=== PATIENT | male | born 1940 | race Caucasian/White ===

== ENCOUNTER 2022-01-13 11:51 | Inpatient (IN) | payer MEDICARE ==
[~2022-01-13] VITALS: Ht 177.8 cm; Wt 114.3 kg
[2022-01-13] VITALS (15 sets, daily range): BP systolic 75–169; BP diastolic 48–110
[2022-01-13] MEDS ORDERED: propofol 1000mg/100ml bottle 100 ML IV ONE (12:34)
[2022-01-13] MEDS ORDERED: amiodarone/D5 360MG/200ML BAG 200 ML IV SCH ×2 (12:35→16:15)
[2022-01-13] MEDS: propofol 1000mg/100ml bottle 100 ML IV SCH (12:42)
[2022-01-13 13:00] LABS: ABG BASE EXCESS -14.7 mmol/L (-2.0-2.0); ABG HCO3 18.4 mmol/L (22.0-26.0); ABG OXYGEN SATURATION 66.8 % (94-97); ABG PCO2 (T) 73.3 mmHg (35.0-48.0); ALLEN'S TEST POSITIVE; FCOHb 0.6 % (0.0-3.9); FMetHb 0.1 % (0.0-1.5); FO2Hb 66.3 % (94-97); PATIENT TEMPERATURE 36.5; PEEP 5 cm H2O; RESPIRATORY RATE 16 b/min; TIDAL VOLUME 500 mL; TOTAL HEMOGLOBIN 19.1 G/dl (14.0-17.9)
[2022-01-13] MEDS ORDERED: epiNEPHrine 0.1mg/ml 10ml syringe ONE (13:00)
[2022-01-13] MEDS ORDERED: amiodarone in dextrose, iso-osm 150mg/100ml bag IV ONE (13:00)
[2022-01-13] MEDS ORDERED: NORepinephrine bitart. inj. IV ONE (13:00)
[2022-01-13] MEDS ORDERED: sodium bicarbonate (8.4%) 1 mEq/ml syringe ONE (13:00)
[2022-01-13] MEDS ORDERED: etomidate 2mg/ml inj. ONE (13:00)
[2022-01-13] MEDS ORDERED: rocuronium 10mg/ml inj IV ONE (13:00)
[2022-01-13 13:26] LABS: BASOPHILS # (AUTO) 0.1 X10'3 (0-0.2); BASOPHILS % (AUTO) 0.4 % (0-1); EOSINOPHILS # (AUTO) 0.5 X10'3 (0-0.9); EOSINOPHILS % (AUTO) 2.5 % (0-6); HEMATOCRIT 56.2 % (42.0-52.0); LYMPHOCYTES # (AUTO) 7.5 X10'3 (1.1-4.8); LYMPHOCYTES % (AUTO) 34.9 % (21-51); MEAN CORPUSCULAR HEMOGLOBIN 28.1 PG (27.0-31.0); MEAN CORPUSCULAR HGB CONC 32.2 g/dL (33.0-36.5); MEAN CORPUSCULAR VOLUME 87.1 FL (78-98); MEAN PLATELET VOLUME 10.4 FL (7.4-10.4); MONOCYTES # (AUTO) 1.2 X10'3 (0-0.9); MONOCYTES % (AUTO) 5.5 % (2-12); NEUTROPHILS # (AUTO) 12.1 X10'3 (1.8-7.7); NEUTROPHILS % (AUTO) 56.7 % (42-75); PLATELET COUNT 262 X10'3 (140-440); RED BLOOD COUNT 6.45 X10'6 (4.70-6.10); RED CELL DISTRIBUTION WIDTH 15.4 % (11.5-14.5); WHITE BLOOD COUNT 21.4 X10'3 (4.5-11.0)
[2022-01-13 13:39] LABS: ALANINE AMINOTRANSFERASE 73 U/L (12-78); ALBUMIN 3.7 G/DL (3.4-5.0); ALKALINE PHOSPHATASE 122 IU/L (46-116); ANION GAP 21 (8-16); BILIRUBIN,TOTAL 1.9 MG/DL (0.1-1.0); BLOOD UREA NITROGEN 13 MG/DL (7-18); BUN/CREATININE RATIO 11.1 (5.4-32.0); CALCIUM 9.1 MG/DL (8.5-10.1); CHLORIDE 97 MMOL/L (99-107); CREATININE 1.17 MG/DL (0.60-1.10); GLUCOSE 442 MG/DL (70-104); SODIUM 137 MMOL/L (135-145); TOTAL PROTEIN 7.5 G/DL (6.4-8.2); eGFR 60 ML/MIN
[2022-01-13 13:45] LABS: MAGNESIUM 1.9 MG/DL (1.5-2.4)
[2022-01-13 13:49] LABS: ASPARTATE AMINO TRANSFERASE 131 U/L (10-37); POTASSIUM 3.7 MMOL/L (3.5-5.1)
[2022-01-13 13:57] LABS: HEMOGLOBIN 18.1 g/dl (14.0-17.9)
--- NOTE | 2022-01-13 13:57 | NUR ---
1217 pt found in bed 19 post ekg not breathing and no pulse. pt wheeled into bed 8 and cpr started with edmd yves 1220-pulse check, vfib, shocked 200j with no effect 1221 io placed left upper tibia 1222 epi given 1223 10 etomidate, pulse check, pt in vfib- shocked at 200j 1225 pulse check, vfib, 1 amp bicarb given 1227 100 rocuronium given, 150 amio push, 10 etomidate 1229 intubated, 23 att, 8.0 mac, sinus tach rate 110 with multiple pvcs
[2022-01-13 14:04] LABS: TOTAL CELLS COUNTED 100
[2022-01-13 14:05] LABS: PLATELET ESTIMATE NORMAL
[2022-01-13] MEDS ORDERED: piperacillin/tazo 3.375gm/50ml 50 ML IV ONE (14:05)
[2022-01-13] MEDS ORDERED: normal saline 1000ML IV soln IVB ONE (14:10)
[2022-01-13] MEDS ORDERED: metoprolol tartrate 1mg/ml inj IV ONE (14:10)
[2022-01-13 15:20] LABS: ETHANOL < 0.010 GM/DL (0.0-0.010)
[2022-01-13] MEDS ORDERED: magnesium hydroxide 30ml (MOM) UD suspension PO PRN (16:00)
[2022-01-13] MEDS ORDERED: LIDOcaine 2% 10ml TOPICAL JELLY (Urojet) TP ONE (16:00)
[2022-01-13] MEDS ORDERED: POTASSIUM BICARB 20meq eff tab 20 MEQ TABLET.EFF PO PRN (16:00)
[2022-01-13] MEDS ORDERED: acetaminophen 325mg tablet PO PRN (16:00)
[2022-01-13] MEDS ORDERED: ondansetron/PF 4mg/2ml inj IV PRN (16:00)
[2022-01-13] MEDS ORDERED: HEPARIN SOD,PORK IN 0.45% NACL 250 ML IV SCH (16:15)
[2022-01-13] MEDS ORDERED: heparin 10,000 units/1 ML INJ IV ONE (16:15)
[2022-01-13] MEDS ORDERED: heparin 10,000 units/1 ML INJ IV PRN (16:15)
[2022-01-13 16:34] LABS: OXYGEN SATURATION (MIXED VEN) 82.8 % (60-80); PO2 MIXED VENOUS (TEMP COR) 63.6 mmHg (35-46)
[2022-01-13 16:52] LABS: BASOPHILS # (AUTO) 0.1 X10'3 (0-0.2); BASOPHILS % (AUTO) 0.4 % (0-1); EOSINOPHILS # (AUTO) 0.2 X10'3 (0-0.9); EOSINOPHILS % (AUTO) 0.5 % (0-6); HEMATOCRIT 54.2 % (42.0-52.0); HEMOGLOBIN 17.5 g/dl (14.0-17.9); LYMPHOCYTES # (AUTO) 3.8 X10'3 (1.1-4.8); LYMPHOCYTES % (AUTO) 12.9 % (21-51); MEAN CORPUSCULAR HEMOGLOBIN 28.4 PG (27.0-31.0); MEAN CORPUSCULAR HGB CONC 32.3 g/dL (33.0-36.5); MEAN CORPUSCULAR VOLUME 87.9 FL (78-98); MEAN PLATELET VOLUME 9.4 FL (7.4-10.4); MONOCYTES # (AUTO) 2.3 X10'3 (0-0.9); MONOCYTES % (AUTO) 7.6 % (2-12); NEUTROPHILS # (AUTO) 23.5 X10'3 (1.8-7.7); NEUTROPHILS % (AUTO) 78.6 % (42-75); PLATELET COUNT 320 X10'3 (140-440); RED BLOOD COUNT 6.17 X10'6 (4.70-6.10); RED CELL DISTRIBUTION WIDTH 14.8 % (11.5-14.5)
[2022-01-13] MEDS ORDERED: AMLO10TA13 PO (17:03)
[2022-01-13] MEDS ORDERED: CHLO25TA10 PO (17:03)
[2022-01-13] MEDS ORDERED: LOSA100T57 PO (17:03)
[2022-01-13] MEDS ORDERED: LEVO200T8 PO (17:03)
[2022-01-13] MEDS ORDERED: DABI150C PO (17:03)
[2022-01-13] MEDS ORDERED: NAPR-56 PO (17:03)
[2022-01-13] MEDS ORDERED: METF-900 PO (17:03)
[2022-01-13 17:05] LABS: CLARITY,URINE CLOUDY (Clear); COLOR,URINE YELLOW (Yellow); GLUCOSE, URINE NEGATIVE (Neg); KETONES,URINE TRACE mg/dl (Neg); LEUKOCYTE ESTERASE ,URINE NEGATIVE (Neg); NITRITES, URINE NEGATIVE (Neg); OCCULT BLOOD,URINE SMALL (Neg); PH,URINE 5.5 (4.8-8.0); PROTEIN,URINE >=300 mg/dl (Neg); UROBILINOGEN,URINE 0.2 E.U/dL (0.2-1.0)
[2022-01-13 17:07] LABS: UA COLLECTION TYPE FOLEY CATH
[2022-01-13 17:07] LABS: ALANINE AMINOTRANSFERASE 91 U/L (12-78); ALBUMIN 3.5 G/DL (3.4-5.0); ALKALINE PHOSPHATASE 133 IU/L (46-116); ANION GAP 26 (8-16); ASPARTATE AMINO TRANSFERASE 209 U/L (10-37); BILIRUBIN,TOTAL 1.9 MG/DL (0.1-1.0); BLOOD UREA NITROGEN 17 MG/DL (7-18); BUN/CREATININE RATIO 9.7 (5.4-32.0); CALCIUM 8.9 MG/DL (8.5-10.1); CHLORIDE 95 MMOL/L (99-107); CREATININE 1.76 MG/DL (0.60-1.10); POTASSIUM 3.4 MMOL/L (3.5-5.1); SODIUM 139 MMOL/L (135-145); TOTAL CARBON DIOXIDE 18.5 MMOL/L (24-32); TOTAL PROTEIN 7.1 G/DL (6.4-8.2); eGFR 38 ML/MIN
[2022-01-13 17:12] LABS: GLUCOSE 496 MG/DL (70-104)
[2022-01-13] MEDS: amiodarone/D5 360MG/200ML BAG 200 ML IV SCH ×2 (17:31→23:13)
[2022-01-13 17:35] LABS: BACTERIA,URINE 2+ /HPF (Neg); RBC,URINE 0-2 /HPF (0-2); SQUAMOUS EPITHELIAL CELL,UR NONE SEEN /LPF (FEW)
[2022-01-13 17:36] LABS: WBC,URINE 0-4 /HPF (0-4)
--- NOTE | 2022-01-13 17:38 | NUR ---
ptt/ inr sent before starting heparin gtt. ptt 118 inr 4.0 heparin gtt stoped
[2022-01-13 17:39] LABS: APTT 118 SECONDS (22-32)
[2022-01-13] MEDS ORDERED: insulin Lispro (HumaLOG) vial - multi-dose SQ SCH (17:55)
[2022-01-13] MEDS ORDERED: Insulin Reg/NS 100units/100mL 100 ML IV SCH (17:55)
[2022-01-13] MEDS ORDERED: dextrose 50%-water 50ml dispensing syringe IV PRN (17:55)
[2022-01-13] MEDS: FENTANYL-0.9 % NACL/PF 100 ML IV PRN (18:02)
[2022-01-13] MEDS ORDERED: NORepinephrine 8mg/ 250ml NS 250 ML IV ONE (18:38)
[2022-01-13] MEDS ORDERED: vancomycin/NS 1 GM ADD-VANTAGE 250 ML IV SCH (18:40)
--- NOTE | 2022-01-13 18:40 | NUR ---
I have received report and assumed care of pt. pt is a 81 year old male, who came to the r with chest pain x 7 days, who became unresponsive, had a V fib arrest was defibrillated in the D, pt has an F of 15 %. He is admitted to the ICU with sever Lactic acidosis, ARDS, hypotension, anuric multisystem failure. He is on a mechanical ventilator, skin is cool, dusky most notably his fingers are deep purple, capillary refill greater then 4 sec., pt is mottled all over. From a cardiac stand point pt is in Afib with frequent PAC, PVC. Pt does not make urine, he does not respond to verbal stimuli. Dr. Schaeffer at bedside, new orders to start Levophed to keep MAP greater the 60, dobutamine at a fixed rate to 3mcg/kg/min. Push 2 amps bicarb followed with a bicarb drip, start and insulin infusion to keep glucose 110-150. Dr. Schaeffer also spoke to pts POA, explained the poor prognosis of pt, Code status discussed pt is now a DNR. Addendum: 01/14/22 at 0601 by Tiki Marrero RN all vaso active medication threw CVL
[2022-01-13] MEDS ORDERED: sodium bicarbonate (8.4%) 1 mEq/ml syringe IV ONE (18:45)
[2022-01-13] MEDS: NORepinephrine inj. 32 MG in normal saline 250ml IV soln 218 ML IV SCH (18:49)
[2022-01-13] MEDS: vancomycin/NS 1 GM ADD-VANTAGE 250 ML IV SCH ×2 (19:00→21:47)
[2022-01-13 19:14] LABS: WHITE BLOOD COUNT 29.8 X10'3 (4.5-11.0)
[2022-01-13 19:15] LABS: ABG BASE EXCESS -15.3 mmol/L (-2.0-2.0); ABG HCO3 15.9 mmol/L (22.0-26.0); ABG OXYGEN SATURATION 98.7 % (94-97); ABG PCO2 (T) 56.9 mmHg (35.0-48.0); ABG PO2 (T) 183.4 mmHg (75.0-100.0); FCOHb 0.3 % (0.0-3.9); FMetHb 0.7 % (0.0-1.5); FO2Hb 97.7 % (94-97); PATIENT TEMPERATURE 36.7; PEEP 10 cm H2O; RESPIRATORY RATE 20 b/min; TIDAL VOLUME 400 mL; TOTAL HEMOGLOBIN 18.7 G/dl (14.0-17.9)
[2022-01-13] MEDS: DOBUTamine-DoBUTrex 500mg/D5W 250 ML IV SCH (19:17)
[2022-01-13] MEDS: sodium bicarbonate (8.4%) inj. 150 MEQ in dextrose 5%-water 1,000 ML IV SCH (19:27)
[2022-01-14] VITALS (35 sets, daily range): BP systolic 82–123; BP diastolic 50–77
[2022-01-14] MEDS: propofol 1000mg/100ml bottle 100 ML IV SCH ×4 (00:54→22:40)
[2022-01-14] MEDS: piperacillin/tazo 3.375gm/50ml 50 ML IV SCH ×4 (00:54→23:50)
[2022-01-14 01:38] LABS: EOSINOPHILS % (AUTO) 0.1 % (0-6); HEMATOCRIT 51.3 % (42.0-52.0)
[2022-01-14 01:39] LABS: BASOPHILS % (AUTO) 0.2 % (0-1); HEMOGLOBIN 17.4 g/dl (14.0-17.9); LYMPHOCYTES # (AUTO) 1.8 X10'3 (1.1-4.8); LYMPHOCYTES % (AUTO) 8.6 % (21-51); MEAN CORPUSCULAR HEMOGLOBIN 28.8 PG (27.0-31.0); MEAN CORPUSCULAR HGB CONC 33.9 g/dL (33.0-36.5); MONOCYTES # (AUTO) 0.5 X10'3 (0-0.9); MONOCYTES % (AUTO) 2.6 % (2-12); NEUTROPHILS # (AUTO) 18.3 X10'3 (1.8-7.7); NEUTROPHILS % (AUTO) 88.5 % (42-75); PLATELET COUNT 226 X10'3 (140-440); RED BLOOD COUNT 6.03 X10'6 (4.70-6.10); RED CELL DISTRIBUTION WIDTH 14.7 % (11.5-14.5); WHITE BLOOD COUNT 20.6 X10'3 (4.5-11.0)
[2022-01-14 01:52] LABS: ALANINE AMINOTRANSFERASE 217 U/L (12-78); ALBUMIN 3.1 G/DL (3.4-5.0); ALKALINE PHOSPHATASE 103 IU/L (46-116); ANION GAP 17 (8-16); ASPARTATE AMINO TRANSFERASE 387 U/L (10-37); BILIRUBIN,TOTAL 1.8 MG/DL (0.1-1.0); BLOOD UREA NITROGEN 23 MG/DL (7-18); BUN/CREATININE RATIO 10.5 (5.4-32.0); CALCIUM 7.9 MG/DL (8.5-10.1); CHLORIDE 100 MMOL/L (99-107); GLUCOSE 345 MG/DL (70-104); MAGNESIUM 1.1 MG/DL (1.5-2.4); PHOSPHORUS 3.6 MG/DL (2.3-4.5); SODIUM 141 MMOL/L (135-145); TOTAL CARBON DIOXIDE 23.7 MMOL/L (24-32); TOTAL PROTEIN 6.1 G/DL (6.4-8.2); eGFR 29 ML/MIN
[2022-01-14 02:05] LABS: POTASSIUM 2.3 MMOL/L (3.5-5.1)
[2022-01-14 02:09] LABS: APTT > 139 SECONDS (22-32)
--- NOTE | 2022-01-14 02:10 | NUR ---
Pt wakes up moves all extremities does not follow commands resists ventilation, sedation adjust to optimize mechanical ventilation
[2022-01-14] MEDS ORDERED: magnesium 2GM in 50ml NS 50 ML IV PRN (02:25)
[2022-01-14] MEDS: potassium Cl 20mEq/100mL bag 100 ML IV PRN ×3 (02:55→22:24)
[2022-01-14 03:20] LABS: D-DIMER 5.25 MG/L FEU (0-0.50)
[2022-01-14 03:27] LABS: APTT > 139 SECONDS (22-32)
[2022-01-14 03:32] LABS: ABG BASE EXCESS -8.2 mmol/L (-2.0-2.0); ABG HCO3 18.1 mmol/L (22.0-26.0); ABG OXYGEN SATURATION 97.6 % (94-97); ABG PCO2 (T) 38.9 mmHg (35.0-48.0); ABG PO2 (T) 98.5 mmHg (75.0-100.0); ALLEN'S TEST Modified; FCOHb 0.2 % (0.0-3.9); FMetHb 0.6 % (0.0-1.5); FO2Hb 96.8 % (94-97); PATIENT TEMPERATURE 36.4; PEEP 10 cm H2O; RESPIRATORY RATE 24 b/min; TIDAL VOLUME 550 mL; TOTAL HEMOGLOBIN 19.4 G/dl (14.0-17.9)
[2022-01-14 03:37] LABS: PLATELET COUNT 226 X10'3 (140-440)
[2022-01-14 03:50] LABS: TOTAL CELLS COUNTED 100
[2022-01-14 03:51] LABS: GIANT PLATELET FEW; LARGE PLATELETS FEW; PLATELET ESTIMATE NORMAL
[2022-01-14] MEDS: amiodarone/D5 360MG/200ML BAG 200 ML IV SCH ×4 (03:59→23:29)
--- NOTE | 2022-01-14 06:09 | NUR ---
report given to rec rn plan of care reviewed
[2022-01-14] MEDS: NORepinephrine inj. 32 MG in normal saline 250ml IV soln 218 ML IV SCH ×3 (07:56→21:46)
[2022-01-14] MEDS: FENTANYL-0.9 % NACL/PF 100 ML IV PRN ×2 (07:57→12:06)
[2022-01-14] MEDS: K and/or MAG REPLACEMENT MC SCH (08:00)
[2022-01-14] MEDS ORDERED: aspirin 325mg tablet PO SCH (08:30)
[2022-01-14] MEDS ORDERED: vasopressin inj. 40 UNIT in dextrose 5%-water 50ml 38 ML IV SCH (09:29)
[2022-01-14 09:42] LABS: ALBUMIN 2.7 G/DL (3.4-5.0); ANION GAP 15 (8-16); BLOOD UREA NITROGEN 28 MG/DL (7-18); CALCIUM 7.5 MG/DL (8.5-10.1); CHLORIDE 98 MMOL/L (99-107); CREATININE 2.33 MG/DL (0.60-1.10); GLUCOSE 263 MG/DL (70-104); MAGNESIUM 1.4 MG/DL (1.5-2.4); PHOSPHORUS 3.6 MG/DL (2.3-4.5); SODIUM 140 MMOL/L (135-145); TOTAL CARBON DIOXIDE 26.8 MMOL/L (24-32); eGFR 27 ML/MIN
[2022-01-14 09:52] LABS: POTASSIUM 2.9 MMOL/L (3.5-5.1)
[2022-01-14] MEDS: sodium bicarbonate (8.4%) inj. 150 MEQ in dextrose 5%-water 1,000 ML IV SCH (10:05)
[2022-01-14] MEDS: NORMAL SALINE IV SCH (10:59)
[2022-01-14] MEDS: VASOPRESSIN IV SCH (10:59)
[2022-01-14] MEDS ORDERED: magnesium 4gm in 100ml NS 100 ML IV ONE (11:05)
[2022-01-14] MEDS ORDERED: potassium Cl 20mEq/100mL bag 100 ML IV ONE (11:05)
[2022-01-14 11:10] LABS: HEMOGLOBIN A1C 7.9 % (4.5-6.2)
--- NOTE | 2022-01-14 11:25 | NUR ---
Joce Consult: Pt intubated s/p cardiac arrest DX NSTEMI, SIRS, acute respiratory failure, CHF EF 15%, and T2DM per EMR. Joce 11 w/ no edema/wounds per EMR. Hx T2DM A1C pending at this time though pt has not checked Glu for 1 year at home per CM at rounds. MAP 71 this AM remains NPO proned w/ NG to suction per RN at rounds; receiving electrolyte replacement per protocol. Visualized pt receiving Propofol at 20.86ml/hr during rounds providing 551 kcals/day in addition to Na-bicarb/D5W at 75ml/hr per EMR providing 306 kcals/day. EN recs below adjusted accordingly. Will continue to monitor for nutrition support needs on vent. Rec: 1. IF EN w/ Propofol remaining at 20.86ml/hr and Na-bicarb/D5W remaining at 75ml/hr in total providing 857 kcals/day; Vital HP at 50ml/hr goal. Would only be able to meet 63% minimum estimated protein needs without overfeeding given Propofol and D5 kcals 2. IF EN and Propofol/D5 weaned; Vital HP at 85ml/hr goal 3. IF EN; additional water flush 100ml Q6H 4. routine bowel care 5. daily scaled wts; monitor for first scaled wt this admit and EN adjustment needs 6. monitor for A1C results and appropriateness for education upon extubation Addendum: 01/14/22 at 1126 by [address] R Diaz [address] Amended: Links added.
--- NOTE | 2022-01-14 12:37 | NUR ---
PRESSURE ULCER EDUCATION: DEFINITION: A pressure ulcer is an area of skin that breaks down when you stay in one position too long. The constant pressure against the skin reduces the blood flow to that area and the affected tissue dies. CAUSES: "Being bedridden or in a wheelchair "Fragile skin "Having a chronic condition, such as diabetes or vascular disease "Inability to move certain parts of your body without assistance "Older age "Incontinence of urine or stool SYMPTOMS: "A reddened area that DOES NOT turn white when pressed on - this can be the beginning of a pressure ulcer "A blister, deep sore or a crater - these can be advanced pressure ulcers FIRST AID: "Relieve the pressure on this area "Keep the area clean and dry "Call your primary doctor if you see any of the above symptoms "DO NOT massage the area "DO NOT use a donut shaped or ring shaped pillow- these actually interfere with the blood flow and cause complications PREVENTION: "Check for pressure ulcers everyday "Change position at least every two hours to relieve pressure "Use items that help relieve pressure- pillows, sheepskin, foam padding, and powders. "Keep skin clean and dry "Eat healthy well balanced meals "Exercise daily IF YOU SEE ANY OF THESE SYMPTOMS WHILE IN THE HOSPITAL - TELL YOUR NURSE IMMEDIATELY. IF YOU SEE ANY OF THESE SYMPTOMS WHILE AT HOME OR HAVE ANY QUESTIONS OR CONCERNS ABOUT PRESSURE ULCERS - CALL YOUR PRIMARY DOCTOR IMMEDIATELY. Addendum: 01/14/22 at 1238 by Albina Levy RN Amended: Links added.
[2022-01-14] MEDS: pantoprazole 40MG/NS 100ML BAG 100 ML IV SCH ×2 (14:31→19:46)
[2022-01-14] MEDS ORDERED: insulin regular, human U-100 3ml vial - multi-dose SQ SCH (15:30)
[2022-01-14] MEDS: DOBUTamine-DoBUTrex 500mg/D5W 250 ML IV SCH (17:11)
[2022-01-14] MEDS: fentaNYL 2,500 MCG in Normal Saline 250ml IV soln bag IV PRN (17:34)
--- NOTE | 2022-01-14 18:20 | NUR ---
Patient in room ICU 2037. I have received report from Majo Cole RN and had the opportunity to ask questions and assume patient care.
[2022-01-14] MEDS ORDERED: insulin glargine (Lantus) pen - multi-dose SQ SCH (18:30)
[2022-01-14] MEDS ORDERED: VANCOMYCIN 750MG IV in NS 250 ML IV SCH (22:00)
[2022-01-14 22:02] LABS: MAGNESIUM 2.2 MG/DL (1.5-2.4); POTASSIUM 3.2 MMOL/L (3.5-5.1)
[2022-01-14 22:31] LABS: APTT 85 SECONDS (22-32)
[2022-01-15] VITALS (36 sets, daily range): BP systolic 78–127; BP diastolic 45–66
[2022-01-15] MEDS: VASOPRESSIN IV SCH (00:07)
[2022-01-15] MEDS: NORMAL SALINE IV SCH (00:07)
--- NOTE | 2022-01-15 00:37 | NUR ---
Patient waking up periodically during shift, attempting to press up on forearms and move head side to side. Patient does not follow commands. Sedation adjusted for patient safety and to optimize ventilation.
[2022-01-15] MEDS: propofol 1000mg/100ml bottle 100 ML IV SCH ×8 (01:53→21:20)
[2022-01-15] MEDS: sodium bicarbonate (8.4%) inj. 150 MEQ in dextrose 5%-water 1,000 ML IV SCH ×2 (01:54→14:08)
[2022-01-15] MEDS: insulin Lispro (HumaLOG) vial - multi-dose SQ SCH ×3 (02:12→14:52)
[2022-01-15] MEDS: amiodarone/D5 360MG/200ML BAG 200 ML IV SCH ×3 (02:21→17:41)
[2022-01-15 02:36] LABS: BASOPHILS % (AUTO) 0.4 % (0-1); EOSINOPHILS # (AUTO) 0.2 X10'3 (0-0.9); EOSINOPHILS % (AUTO) 1.8 % (0-6); HEMATOCRIT 45.6 % (42.0-52.0); HEMOGLOBIN 15.8 g/dl (14.0-17.9); LYMPHOCYTES # (AUTO) 1.4 X10'3 (1.1-4.8); LYMPHOCYTES % (AUTO) 16.2 % (21-51); MEAN CORPUSCULAR HEMOGLOBIN 28.9 PG (27.0-31.0); MEAN CORPUSCULAR HGB CONC 34.7 g/dL (33.0-36.5); MEAN CORPUSCULAR VOLUME 83.5 FL (78-98); MEAN PLATELET VOLUME 9.9 FL (7.4-10.4); MONOCYTES # (AUTO) 0.8 X10'3 (0-0.9); MONOCYTES % (AUTO) 9.5 % (2-12); NEUTROPHILS # (AUTO) 6.3 X10'3 (1.8-7.7); NEUTROPHILS % (AUTO) 72.1 % (42-75); PLATELET COUNT 167 X10'3 (140-440); RED BLOOD COUNT 5.46 X10'6 (4.70-6.10); RED CELL DISTRIBUTION WIDTH 14.9 % (11.5-14.5); WHITE BLOOD COUNT 8.8 X10'3 (4.5-11.0)
[2022-01-15 02:48] LABS: ABG BASE EXCESS -3.8 mmol/L (-2.0-2.0); ABG HCO3 21.5 mmol/L (22.0-26.0); ABG OXYGEN SATURATION 94.1 % (94-97); ABG PCO2 (T) 40.6 mmHg (35.0-48.0); ABG PO2 (T) 73.7 mmHg (75.0-100.0); ALLEN'S TEST Modified; FCOHb 0.4 % (0.0-3.9); FMetHb 0.4 % (0.0-1.5); FO2Hb 93.3 % (94-97); PATIENT TEMPERATURE 37.3; PEEP 10 cm H2O; RESPIRATORY RATE 24 b/min; TIDAL VOLUME 550 mL; TOTAL HEMOGLOBIN 16.8 G/dl (14.0-17.9)
[2022-01-15 03:03] LABS: ALANINE AMINOTRANSFERASE 247 U/L (12-78); ALBUMIN 2.3 G/DL (3.4-5.0); ALBUMIN/GLOBULIN RATIO 0.8 (1.1-1.5); ALKALINE PHOSPHATASE 70 IU/L (46-116); BILIRUBIN,TOTAL 1.6 MG/DL (0.1-1.0); BLOOD UREA NITROGEN 40 MG/DL (7-18); BUN/CREATININE RATIO 14.5 (5.4-32.0); CALCIUM 7.4 MG/DL (8.5-10.1); CREATININE 2.76 MG/DL (0.60-1.10); MAGNESIUM 2.2 MG/DL (1.5-2.4); PHOSPHORUS 5.3 MG/DL (2.3-4.5); TOTAL CARBON DIOXIDE 25.4 MMOL/L (24-32); TOTAL PROTEIN 5.3 G/DL (6.4-8.2); eGFR 22 ML/MIN
[2022-01-15 03:27] LABS: APTT 79 SECONDS (22-32)
[2022-01-15 03:45] LABS: ASPARTATE AMINO TRANSFERASE 264 U/L (10-37)
[2022-01-15 04:00] LABS: ANION GAP 22 (8-16); CHLORIDE 89 MMOL/L (99-107); GLUCOSE 208 MG/DL (70-104); POTASSIUM 3.9 MMOL/L (3.5-5.1); SODIUM 136 MMOL/L (135-145)
[2022-01-15] MEDS: NORepinephrine inj. 32 MG in normal saline 250ml IV soln 218 ML IV SCH ×2 (04:35→21:20)
[2022-01-15 05:00] LABS: PLATELET ESTIMATE NORMAL; TOTAL CELLS COUNTED 100
[2022-01-15 05:02] LABS: SMUDGE CELLS 1+; TOXIC GRANULATION 1+; TOXIC VACUOLATION FEW
[2022-01-15 05:03] LABS: TEAR DROP CELLS 2+
[2022-01-15 05:04] LABS: ROULEAUX 1+
[2022-01-15] MEDS: fentaNYL 2,500 MCG in Normal Saline 250ml IV soln bag IV PRN ×2 (06:13→18:05)
--- NOTE | 2022-01-15 06:13 | NUR ---
Problems reprioritized. Patient report given, questions answered & plan of care reviewed with MOE Seals.
[2022-01-15] MEDS: pantoprazole 40MG/NS 100ML BAG 100 ML IV SCH ×2 (07:31→19:34)
[2022-01-15] MEDS: piperacillin/tazo 3.375gm/50ml 50 ML IV SCH ×2 (07:31→16:23)
[2022-01-15] MEDS: K and/or MAG REPLACEMENT MC SCH (07:32)
--- NOTE | 2022-01-15 11:52 | NUR ---
TF Consult: Pt remains intubated w/ TF to start today per associate embalmer/funeral director. MD aware of EN adjustments given Propofol at 28.8ml/hr providing 760 kcals/day and Na-bicarb/D5W at 75ml/hr providing 306 kcals/day. EN recs below for both on/off additional kcal sources. Only be able to meet 50% minimum estimated protein needs without overfeeding given Propofol and D5 kcals. Miralax to start today w/ EN per MD. Noted A1C results 7.9% appropriate given age. Will monitor for EN tolerance and adjustment needs as medically indicated. Rec: 1. Continuous TF per MD. Given Propofol at 28.8ml/hr and Na-bicarb/D5W at at 75ml/hr in total providing additional 1066 kcals/day; Vital HP at 40ml/hr goal to provide 960ml volume/day, 960 kcals, 803ml water, and 84g protein. Only be able to meet 50% minimum estimated protein needs without overfeeding given Propofol and D5 kcals 2. IF Propofol/D5 weaned; Vital HP at 85ml/hr goal would provide 2040ml volume/day, 2040 kcals, 1705ml water, and 178g protein. 3. additional water flush 100ml Q6H 4. PALB Q /; daily scaled wts 5. monitor for first scaled wt this admit and EN adjustment needs 6. routine bowel care Addendum: 01/15/22 at 1153 by [address] R Diaz RD Amended: Links added.
[2022-01-15] MEDS: polyethylene glycol 3350 17gm powd pack PO SCH (11:58)
[2022-01-15] MEDS: DOBUTamine-DoBUTrex 500mg/D5W 250 ML IV SCH (14:07)
--- NOTE | 2022-01-15 18:20 | NUR ---
Patient in room ICU 2037. I have received report from MOE Seals and had the opportunity to ask questions and assume patient care.
[2022-01-15] MEDS ORDERED: insulin glargine (Lantus) pen - multi-dose SQ SCH (21:00)
[2022-01-15 21:32] LABS: MAGNESIUM 1.9 MG/DL (1.5-2.4); POTASSIUM 3.9 MMOL/L (3.5-5.1)
[2022-01-15] MEDS: vancomycin inj 500 MG in normal saline 100ml IV soln 100 ML IV SCH (21:54)
[2022-01-15] MEDS ORDERED: vasopressin inj. 40 UNIT in normal saline 50ml IV soln 38 ML IV SCH (23:27)
[2022-01-16] VITALS (35 sets, daily range): BP systolic 85–163; BP diastolic 46–74
[2022-01-16] MEDS: propofol 1000mg/100ml bottle 100 ML IV SCH ×5 (00:30→22:51)
[2022-01-16] MEDS: piperacillin/tazo 3.375gm/50ml 50 ML IV SCH ×3 (00:30→15:51)
[2022-01-16] MEDS: amiodarone/D5 360MG/200ML BAG 200 ML IV SCH ×4 (00:34→17:57)
[2022-01-16 03:03] LABS: BASOPHILS # (AUTO) 0.1 X10'3 (0-0.2); BASOPHILS % (AUTO) 0.6 % (0-1); EOSINOPHILS # (AUTO) 0.2 X10'3 (0-0.9); EOSINOPHILS % (AUTO) 1.7 % (0-6); HEMATOCRIT 40.4 % (42.0-52.0); LYMPHOCYTES # (AUTO) 1.4 X10'3 (1.1-4.8); LYMPHOCYTES % (AUTO) 14.5 % (21-51); MEAN CORPUSCULAR HEMOGLOBIN 28.6 PG (27.0-31.0); MEAN CORPUSCULAR HGB CONC 34.7 g/dL (33.0-36.5); MEAN CORPUSCULAR VOLUME 82.5 FL (78-98); MEAN PLATELET VOLUME 9.7 FL (7.4-10.4); MONOCYTES # (AUTO) 0.7 X10'3 (0-0.9); MONOCYTES % (AUTO) 7.7 % (2-12); NEUTROPHILS # (AUTO) 7.1 X10'3 (1.8-7.7); NEUTROPHILS % (AUTO) 75.5 % (42-75); PLATELET COUNT 141 X10'3 (140-440); WHITE BLOOD COUNT 9.4 X10'3 (4.5-11.0)
[2022-01-16 03:19] LABS: ALBUMIN 1.9 G/DL (3.4-5.0); ALBUMIN/GLOBULIN RATIO 0.6 (1.1-1.5); ALKALINE PHOSPHATASE 71 IU/L (46-116); BILIRUBIN,TOTAL 1.6 MG/DL (0.1-1.0); BLOOD UREA NITROGEN 50 MG/DL (7-18); BUN/CREATININE RATIO 14.2 (5.4-32.0); CALCIUM 7.1 MG/DL (8.5-10.1); CREATININE 3.51 MG/DL (0.60-1.10); MAGNESIUM 1.8 MG/DL (1.5-2.4); PHOSPHORUS 5.3 MG/DL (2.3-4.5); PREALBUMIN 12.6 MG/DL (19-36); TOTAL CARBON DIOXIDE 28.8 MMOL/L (24-32); eGFR 17 ML/MIN
[2022-01-16 03:36] LABS: ABG BASE EXCESS 1.4 mmol/L (-2.0-2.0); ABG HCO3 24.5 mmol/L (22.0-26.0); ABG OXYGEN SATURATION 93.9 % (94-97); ABG PCO2 (T) 32.2 mmHg (35.0-48.0); ABG PO2 (T) 63.3 mmHg (75.0-100.0); ALLEN'S TEST POSITIVE; FCOHb 0.2 % (0.0-3.9); FMetHb 0.3 % (0.0-1.5); FO2Hb 93.4 % (94-97); PATIENT TEMPERATURE 35.7; PEEP 10 cm H2O; RESPIRATORY RATE 24 b/min; TIDAL VOLUME 550 mL; TOTAL HEMOGLOBIN 14.8 G/dl (14.0-17.9)
[2022-01-16 03:44] LABS: ALANINE AMINOTRANSFERASE 216 U/L (12-78)
[2022-01-16] MEDS: insulin regular, human U-100 3ml vial - multi-dose SQ SCH ×4 (03:49→22:39)
--- NOTE | 2022-01-16 03:56 | NUR ---
Patient wakes up, opens eyes spontaneously. Patient does NOT tack or follow commands. Will move all extremities independently. Patient has scleredema and is jaundiced.
[2022-01-16 04:01] LABS: GLUCOSE 212 MG/DL (70-104); SODIUM 130 MMOL/L (135-145)
[2022-01-16 04:02] LABS: ANION GAP 17 (8-16); CHLORIDE 84 MMOL/L (99-107)
[2022-01-16 04:35] LABS: ASPARTATE AMINO TRANSFERASE 160 U/L (10-37)
[2022-01-16] MEDS: sodium bicarbonate (8.4%) inj. 150 MEQ in dextrose 5%-water 1,000 ML IV SCH (04:49)
--- NOTE | 2022-01-16 06:29 | NUR ---
Problems reprioritized. Patient report given, questions answered & plan of care reviewed with MOE Perry.
[2022-01-16] MEDS: polyethylene glycol 3350 17gm powd pack PO SCH (07:58)
[2022-01-16] MEDS: pantoprazole 40MG/NS 100ML BAG 100 ML IV SCH ×2 (07:58→20:50)
[2022-01-16] MEDS: fentaNYL 2,500 MCG in Normal Saline 250ml IV soln bag IV PRN (07:59)
[2022-01-16] MEDS: NORepinephrine inj. 32 MG in normal saline 250ml IV soln 218 ML IV SCH ×2 (07:59→18:13)
[2022-01-16] MEDS: K and/or MAG REPLACEMENT MC SCH (08:00)
[2022-01-16 10:08] LABS: TOTAL PROTEIN,URINE RANDOM 116.9 MG/DL
--- NOTE | 2022-01-16 11:04 | NUR ---
F/u 01/16: Pt remains intubated Na-bicarb/D5W to stop w/ EN to adjust accordingly per sulfonator operator at rounds; updated recs below. Serum Na 130mmol/L this AM w/ free water to be held per MD. Propofol held at this time though may require restarting per RN. EN recs below considering Propofol continuing; will monitor for further EN adjustment needs as medically indicated. Rec: 1. Continuous TF per MD. Given Propofol previously at 21.6ml/hr and may return per RN providing an additional 570 kcals/day; Vital HP at 60ml/hr goal to provide 1440ml volume/day, 1440 kcals, 1204ml water, and 126g protein. Meeting 76% minimum estimated protein needs given Propofol kcals 2. IF Propofol weaned; Vital HP at 85ml/hr goal would provide 2040ml volume/day, 2040 kcals, 1705ml water, and 178g protein. 3. additional water flush per sulfonator operator; serum Na 130mmol/L this AM 4. PALB Q /; daily scaled wts 5. monitor for first scaled wt this admit and EN adjustment needs 6. routine bowel care Addendum: 01/16/22 at 1104 by Jose R Diaz RD Amended: Links added.
[2022-01-16] MEDS ORDERED: furosemide 10 MG/1 ML 10ml inj IV ONE (11:42)
[2022-01-16] MEDS ORDERED: magnesium Cl slow-release 64mg tablet PO PRN (11:50)
[2022-01-16] MEDS ORDERED: potassium Cl 20 mEq SR tablet PO PRN ×2 (11:50)
[2022-01-16] MEDS ORDERED: furosemide inj 1,000 MG in normal saline 250ml IV soln 150 ML IV SCH (11:50)
[2022-01-16] MEDS ORDERED: Neutra Phos packet PO PRN (11:50)
[2022-01-16] MEDS ORDERED: sodium phosphate inj. 15 MMOL in dextrose 5%-water 250 ML IV PRN (11:50)
[2022-01-16] MEDS ORDERED: magnesium 2GM in 50ml NS 50 ML IV PRN (11:50)
[2022-01-16] MEDS ORDERED: sodium phosphate inj. 30 MMOL in dextrose 5%-water 250 ML IV PRN (11:50)
[2022-01-16] MEDS ORDERED: magnesium 4gm in 100ml NS 100 ML IV PRN (11:50)
[2022-01-16] MEDS: K, MAG and/or Phos replacement - Verify level? MC SCH (12:00)
[2022-01-16 12:48] LABS: ALBUMIN 1.9 G/DL (3.4-5.0); ANION GAP 12 (8-16); BLOOD UREA NITROGEN 55 MG/DL (7-18); BUN/CREATININE RATIO 14.7 (5.4-32.0); CALCIUM 7.3 MG/DL (8.5-10.1); CHLORIDE 91 MMOL/L (99-107); CREATININE 3.73 MG/DL (0.60-1.10); GLUCOSE 144 MG/DL (70-104); PHOSPHORUS 6.1 MG/DL (2.3-4.5); POTASSIUM 4.1 MMOL/L (3.5-5.1); SODIUM 133 MMOL/L (135-145); TOTAL CARBON DIOXIDE 29.8 MMOL/L (24-32); eGFR 16 ML/MIN
[2022-01-16] MEDS: DOBUTamine-DoBUTrex 500mg/D5W 250 ML IV SCH ×2 (13:07→14:51)
--- NOTE | 2022-01-16 16:00 | NUR ---
Patient in room ICU 2037. I have received report from Daron ROSA and had the opportunity to ask questions and assume patient care.
--- NOTE | 2022-01-16 16:30 | NUR ---
Pt awake and able to nod head to questions and squeezes on command Vent on cpap 40 % karlo well with sat 96 % Vss on Levophed gtt to keep sys above 90 Remains in afib controlled rate on amiodarone gtt Dobut at 3 mcg Diprivan and fent used for sedation Oral care given suctioned thru ET tube for thick clear secretions karlo tube feeds abd large with bowel sounds On lasix gtt and uo 150 per hour 3 + edema noted peripheral qwith cool extremity
--- NOTE | 2022-01-16 17:00 | NUR ---
Reposit pt karlo well Son at bedside and given report
--- NOTE | 2022-01-16 17:55 | NUR ---
At bedside to draw lab and noted central line pullled out Unable to draw blood Dr. Schaeffer callled and coming in Pt on many gtts
--- NOTE | 2022-01-16 18:15 | NUR ---
Dr Schaeffer at bedside and central line d/c with mod amt of oozing form site pressure held mult attempt to place central right groin Eventually line place successfully Lab sent after small run of v tach noted Pt on Lasix gtt at 2 mg /hr and uo 150 ml per hour Report given to Sharri ROSA
--- NOTE | 2022-01-16 18:40 | NUR ---
Patient in room ICU 2037. I have received report from MOE Wang and had the opportunity to ask questions and assume patient care. Dr. Schaeffer at bedside to place new central line.
[2022-01-16 19:30] LABS: ALBUMIN 1.9 G/DL (3.4-5.0); ANION GAP 12 (8-16); BLOOD UREA NITROGEN 59 MG/DL (7-18); BUN/CREATININE RATIO 14.9 (5.4-32.0); CALCIUM 7.4 MG/DL (8.5-10.1); CHLORIDE 91 MMOL/L (99-107); CREATININE 3.96 MG/DL (0.60-1.10); GLUCOSE 108 MG/DL (70-104); PHOSPHORUS 6.4 MG/DL (2.3-4.5); POTASSIUM 3.9 MMOL/L (3.5-5.1); SODIUM 133 MMOL/L (135-145); TOTAL CARBON DIOXIDE 30.5 MMOL/L (24-32); eGFR 15 ML/MIN
[2022-01-16] MEDS: vancomycin inj 500 MG in normal saline 100ml IV soln 100 ML IV SCH (22:35)
[2022-01-16] MEDS: insulin glargine (Lantus) pen - multi-dose SQ SCH (22:50)
[2022-01-16 23:53] LABS: ALBUMIN 1.9 G/DL (3.4-5.0); ANION GAP 11 (8-16); BLOOD UREA NITROGEN 60 MG/DL (7-18); BUN/CREATININE RATIO 14.9 (5.4-32.0); CALCIUM 7.2 MG/DL (8.5-10.1); CHLORIDE 92 MMOL/L (99-107); CREATININE 4.02 MG/DL (0.60-1.10); GLUCOSE 126 MG/DL (70-104); PHOSPHORUS 6.5 MG/DL (2.3-4.5); POTASSIUM 3.8 MMOL/L (3.5-5.1); SODIUM 133 MMOL/L (135-145); TOTAL CARBON DIOXIDE 30.5 MMOL/L (24-32); eGFR 14 ML/MIN
[2022-01-17] VITALS (30 sets, daily range): BP systolic 96–126; BP diastolic 48–68
[2022-01-17] MEDS: amiodarone/D5 360MG/200ML BAG 200 ML IV SCH ×4 (00:23→18:13)
[2022-01-17] MEDS: piperacillin/tazo 3.375gm/50ml 50 ML IV SCH ×3 (00:23→19:32)
[2022-01-17] MEDS: insulin regular, human U-100 3ml vial - multi-dose SQ SCH (02:22)
[2022-01-17 03:13] LABS: BASOPHILS % (AUTO) 0.2 % (0-1); EOSINOPHILS # (AUTO) 0.1 X10'3 (0-0.9); EOSINOPHILS % (AUTO) 1.3 % (0-6); HEMATOCRIT 36.5 % (42.0-52.0); HEMOGLOBIN 12.5 g/dl (14.0-17.9); LYMPHOCYTES # (AUTO) 1.1 X10'3 (1.1-4.8); LYMPHOCYTES % (AUTO) 9.7 % (21-51); MEAN CORPUSCULAR HEMOGLOBIN 28.3 PG (27.0-31.0); MEAN CORPUSCULAR HGB CONC 34.2 g/dL (33.0-36.5); MEAN CORPUSCULAR VOLUME 82.6 FL (78-98); MEAN PLATELET VOLUME 9.3 FL (7.4-10.4); MONOCYTES # (AUTO) 0.6 X10'3 (0-0.9); MONOCYTES % (AUTO) 5.8 % (2-12); NEUTROPHILS # (AUTO) 9.3 X10'3 (1.8-7.7); PLATELET COUNT 136 X10'3 (140-440); RED BLOOD COUNT 4.42 X10'6 (4.70-6.10); RED CELL DISTRIBUTION WIDTH 15.5 % (11.5-14.5); WHITE BLOOD COUNT 11.2 X10'3 (4.5-11.0)
[2022-01-17 03:30] LABS: ALANINE AMINOTRANSFERASE 174 U/L (12-78); ALBUMIN 1.9 G/DL (3.4-5.0); ALBUMIN/GLOBULIN RATIO 0.6 (1.1-1.5); ALKALINE PHOSPHATASE 90 IU/L (46-116); ANION GAP 12 (8-16); ASPARTATE AMINO TRANSFERASE 120 U/L (10-37); BILIRUBIN,TOTAL 1.4 MG/DL (0.1-1.0); BLOOD UREA NITROGEN 61 MG/DL (7-18); BUN/CREATININE RATIO 15.1 (5.4-32.0); CALCIUM 7.5 MG/DL (8.5-10.1); CHLORIDE 91 MMOL/L (99-107); CREATININE 4.05 MG/DL (0.60-1.10); GLUCOSE 127 MG/DL (70-104); MAGNESIUM 1.9 MG/DL (1.5-2.4); PHOSPHORUS 6.5 MG/DL (2.3-4.5); POTASSIUM 3.8 MMOL/L (3.5-5.1); SODIUM 134 MMOL/L (135-145); TOTAL CARBON DIOXIDE 30.7 MMOL/L (24-32); TOTAL PROTEIN 5.1 G/DL (6.4-8.2); TRIGLYCERIDES 210 MG/DL (20-135); eGFR 14 ML/MIN
[2022-01-17 03:38] LABS: ABG BASE EXCESS 3.8 mmol/L (-2.0-2.0); ABG HCO3 28.7 mmol/L (22.0-26.0); ABG OXYGEN SATURATION 92.8 % (94-97); ABG PCO2 (T) 44.8 mmHg (35.0-48.0); ABG PO2 (T) 68.2 mmHg (75.0-100.0); ALLEN'S TEST POSITIVE; FMetHb 0.5 % (0.0-1.5); FO2Hb 92.3 % (94-97); PATIENT TEMPERATURE 37.3; PEEP 7 cm H2O; TOTAL HEMOGLOBIN 13.6 G/dl (14.0-17.9)
[2022-01-17 03:43] LABS: APTT 88 SECONDS (22-32)
--- NOTE | 2022-01-17 06:55 | NUR ---
Problems reprioritized. Patient report given, questions answered & plan of care reviewed with MOE Fernando.
[2022-01-17] MEDS: K, MAG and/or Phos replacement - Verify level? MC SCH (08:00)
[2022-01-17] MEDS: insulin glargine (Lantus) pen - multi-dose SQ SCH ×2 (08:00→19:34)
[2022-01-17] MEDS: pantoprazole 40MG/NS 100ML BAG 100 ML IV SCH ×2 (08:10→19:32)
[2022-01-17] MEDS: polyethylene glycol 3350 17gm powd pack PO SCH (08:17)
[2022-01-17] MEDS: propofol 1000mg/100ml bottle 100 ML IV SCH (08:45)
[2022-01-17 09:16] LABS: ALBUMIN 1.8 G/DL (3.4-5.0); ANION GAP 13 (8-16); BLOOD UREA NITROGEN 61 MG/DL (7-18); BUN/CREATININE RATIO 14.6 (5.4-32.0); CALCIUM 7.6 MG/DL (8.5-10.1); CHLORIDE 92 MMOL/L (99-107); CREATININE 4.17 MG/DL (0.60-1.10); GLUCOSE 69 MG/DL (70-104); MAGNESIUM 1.8 MG/DL (1.5-2.4); PHOSPHORUS 6.2 MG/DL (2.3-4.5); POTASSIUM 3.5 MMOL/L (3.5-5.1); SODIUM 136 MMOL/L (135-145); TOTAL CARBON DIOXIDE 31.4 MMOL/L (24-32); eGFR 14 ML/MIN
[2022-01-17] MEDS: NORepinephrine inj. 32 MG in normal saline 250ml IV soln 218 ML IV SCH (10:30)
[2022-01-17 11:50] LABS: ABG BASE EXCESS 3.2 mmol/L (-2.0-2.0); ABG HCO3 27.8 mmol/L (22.0-26.0); ABG OXYGEN SATURATION 92.1 % (94-97); ABG PCO2 (T) 42.4 mmHg (35.0-48.0); ABG PO2 (T) 64.8 mmHg (75.0-100.0); ALLEN'S TEST POSITIVE; FCOHb 0.3 % (0.0-3.9); FMetHb 0.4 % (0.0-1.5); FO2Hb 91.5 % (94-97); PATIENT TEMPERATURE 36.9; TOTAL HEMOGLOBIN 14.4 G/dl (14.0-17.9)
[2022-01-17] MEDS: DOBUTamine-DoBUTrex 500mg/D5W 250 ML IV SCH (12:46)
[2022-01-17 12:52] LABS: ABG BASE EXCESS 3.3 mmol/L (-2.0-2.0); ABG HCO3 27.5 mmol/L (22.0-26.0); ABG OXYGEN SATURATION 91.9 % (94-97); ABG PO2 (T) 62.6 mmHg (75.0-100.0); ALLEN'S TEST POSITIVE; FCOHb 0.1 % (0.0-3.9); FLOW 10 L/min; FMetHb 0.3 % (0.0-1.5); FO2Hb 91.5 % (94-97); PATIENT TEMPERATURE 37.2; TOTAL HEMOGLOBIN 13.6 G/dl (14.0-17.9)
[2022-01-17 14:22] LABS: ALBUMIN 1.9 G/DL (3.4-5.0); ANION GAP 13 (8-16); BLOOD UREA NITROGEN 63 MG/DL (7-18); BUN/CREATININE RATIO 14.3 (5.4-32.0); CALCIUM 7.8 MG/DL (8.5-10.1); CHLORIDE 91 MMOL/L (99-107); GLUCOSE 116 MG/DL (70-104); MAGNESIUM 1.8 MG/DL (1.5-2.4); PHOSPHORUS 6.7 MG/DL (2.3-4.5); POTASSIUM 3.9 MMOL/L (3.5-5.1); SODIUM 135 MMOL/L (135-145); TOTAL CARBON DIOXIDE 31.3 MMOL/L (24-32); eGFR 13 ML/MIN
--- NOTE | 2022-01-17 21:47 | NUR ---
new photos of R hand and both feet placed in chart.
[2022-01-17 22:05] LABS: ALBUMIN 1.9 G/DL (3.4-5.0); ANION GAP 13 (8-16); BLOOD UREA NITROGEN 68 MG/DL (7-18); CHLORIDE 91 MMOL/L (99-107); CREATININE 4.54 MG/DL (0.60-1.10); GLUCOSE 128 MG/DL (70-104); MAGNESIUM 1.9 MG/DL (1.5-2.4); PHOSPHORUS 7.6 MG/DL (2.3-4.5); POTASSIUM 3.8 MMOL/L (3.5-5.1); SODIUM 135 MMOL/L (135-145); TOTAL CARBON DIOXIDE 30.7 MMOL/L (24-32); eGFR 13 ML/MIN
[2022-01-17] MEDS: vancomycin inj 500 MG in normal saline 100ml IV soln 100 ML IV SCH (22:06)
[2022-01-18] VITALS (24 sets, daily range): BP systolic 90–122; BP diastolic 43–73
[2022-01-18] MEDS: amiodarone/D5 360MG/200ML BAG 200 ML IV SCH ×5 (00:29→20:25)
[2022-01-18 03:12] LABS: BASOPHILS % (AUTO) 0.2 % (0-1); EOSINOPHILS % (AUTO) 0.5 % (0-6); HEMATOCRIT 32.5 % (42.0-52.0); HEMOGLOBIN 11.3 g/dl (14.0-17.9); LYMPHOCYTES # (AUTO) 0.8 X10'3 (1.1-4.8); LYMPHOCYTES % (AUTO) 10.3 % (21-51); MEAN CORPUSCULAR HGB CONC 34.6 g/dL (33.0-36.5); MEAN CORPUSCULAR VOLUME 83.9 FL (78-98); MEAN PLATELET VOLUME 9.7 FL (7.4-10.4); MONOCYTES # (AUTO) 0.5 X10'3 (0-0.9); MONOCYTES % (AUTO) 6.8 % (2-12); NEUTROPHILS # (AUTO) 6.2 X10'3 (1.8-7.7); NEUTROPHILS % (AUTO) 82.2 % (42-75); PLATELET COUNT 94 X10'3 (140-440); RED BLOOD COUNT 3.87 X10'6 (4.70-6.10); RED CELL DISTRIBUTION WIDTH 15.4 % (11.5-14.5); WHITE BLOOD COUNT 7.6 X10'3 (4.5-11.0)
[2022-01-18 03:18] LABS: ALANINE AMINOTRANSFERASE 126 U/L (12-78); ALBUMIN 1.8 G/DL (3.4-5.0); ALBUMIN/GLOBULIN RATIO 0.6 (1.1-1.5); ALKALINE PHOSPHATASE 122 IU/L (46-116); ANION GAP 14 (8-16); ASPARTATE AMINO TRANSFERASE 77 U/L (10-37); BILIRUBIN,TOTAL 1.3 MG/DL (0.1-1.0); BLOOD UREA NITROGEN 72 MG/DL (7-18); BUN/CREATININE RATIO 15.6 (5.4-32.0); CALCIUM 8.1 MG/DL (8.5-10.1); CHLORIDE 91 MMOL/L (99-107); CREATININE 4.62 MG/DL (0.60-1.10); GLUCOSE 112 MG/DL (70-104); MAGNESIUM 1.9 MG/DL (1.5-2.4); POTASSIUM 3.7 MMOL/L (3.5-5.1); SODIUM 136 MMOL/L (135-145); TOTAL CARBON DIOXIDE 30.7 MMOL/L (24-32); eGFR 12 ML/MIN
[2022-01-18 03:23] LABS: APTT 84 SECONDS (22-32)
[2022-01-18] MEDS ORDERED: vancomycin/NS 1 GM ADD-VANTAGE 250 ML IV PRN (06:25)
--- NOTE | 2022-01-18 06:30 | NUR ---
Patient in room ICU 2037. I have received report from Daron ROSA and had the opportunity to ask questions and assume patient care. Pt semi fowers in bed, alert to voice, O2/facemask/6LPM. Right Groin quad lumin patent running lasix @ 15, Amio at 0.5, Levo @ 0.05, Dobut @ 3. heels floated. deneis pain. answers simple questions approtpriately. saftey measures in place. safety education comleted.
[2022-01-18] MEDS: VANCOMYCIN LEVEL IV SCH (06:59)
--- NOTE | 2022-01-18 07:49 | NUR ---
Reassessment: Pt has been extubated 01/17, OGT removed and TF stopped per EMR. Recommend BSS w/ BOW STRING MAKER prior to diet advancement, though no coverage on the weekends. Recommend diet advancement to Carb control if able to tolerate. If PO remains low recommend restarting TF. LBM 01/17 receiving routine bowel care. Will continue to monitor. Rec: 1. Advance to Carb control diet; pending BSS w/ BOW STRING MAKER 2. Monitor need for ONS or nutrition support 3. Bowel care per rx 4. Weekly wts Addendum: 01/18/22 at [address] Amended: Links added.
[2022-01-18] MEDS: K, MAG and/or Phos replacement - Verify level? MC SCH (08:00)
[2022-01-18] MEDS ORDERED: vancomycin/NS 1 GM ADD-VANTAGE 250 ML IV ONE (08:00)
[2022-01-18] MEDS: insulin glargine (Lantus) pen - multi-dose SQ SCH ×2 (08:00→20:00)
--- NOTE | 2022-01-18 08:37 | NUR ---
Spoke with Dr. Schaeffer regarding pt. Pt swallowing without issue (clear water). Dr. Schaeffer ok to start feeding pt, start with clear liq and progress as tolerated to heart healthy carb controlled diet. ok to d/c tube feedings.
[2022-01-18] MEDS: DOBUTamine-DoBUTrex 500mg/D5W 250 ML IV SCH (10:12)
[2022-01-18] MEDS: pantoprazole 40MG/NS 100ML BAG 100 ML IV SCH ×2 (10:14→20:24)
[2022-01-18] MEDS: polyethylene glycol 3350 17gm powd pack PO SCH (10:14)
--- NOTE | 2022-01-18 10:30 | NUR ---
Dr. Little to see pt. discussed impending plan for heart cath. Dr. little indicated pt's kidneys slowing improving. no need for dialysis at this time. Dr. Little indicated to place lasix on hold until after heart cath, hoping that cath today or tomorrow. also Dr. Little wants bicarb ([id number] with 2 AMP sodium bicarb at 150ml/hr 4 hrs prior to heart cath, then decrease to 100ml/hr.)
[2022-01-18] MEDS: piperacillin/tazo 3.375gm/50ml 50 ML IV SCH ×2 (10:44→20:24)
--- NOTE | 2022-01-18 11:00 | NUR ---
Dr. Lee to see pt. Surgical consent attained. Dr. Lee to see pt and to speak with pt's son, Grant Lacey. ( ) on the phone regarding AICD placement and angiogram. Grant the pt and Grant Lacey the son both consent to procedure. Grant Lacey to come in to sign consents today. Per Dr. Lee, when coags WNL then will procede with AICD/angiogram. new order for coags Qam. Dr. Lee spoke with Dr. Schaeffer. notified both of Dr. Jimenes's new order to place Lasix on hold. Dr. Schaeffer stated "Discontinue lasix if Dr. Jimenes wants it on hold." notified britta and of bicarb order prior to surgery.
--- NOTE | 2022-01-18 11:34 | NUR ---
Dr. Elias to see pt. no new orders. discussed all prior doctors orders and visits.
[2022-01-18] MEDS: acetaminophen 325mg tablet PO PRN (13:41)
--- NOTE | 2022-01-18 16:16 | NUR ---
Pt with asymptomatic 19 beat run of VTAC. pt denies chest pain. alert and oriented at baseline. no sob.
--- NOTE | 2022-01-18 18:30 | NUR ---
Patient in room ICU 2037. I have received report from Yolanda ROSA and had the opportunity to ask questions and assume patient care. Addendum: 01/18/22 at 1907 by Karmen Rosales RN Amended: Links added.
--- NOTE | 2022-01-18 18:41 | NUR ---
Problems reprioritized. Patient report given, questions answered & plan of care reviewed with Karmen benites. Pt alert, content, sitting high fowlers eating dinner. safety measures in place. no s/sx acute cardiac distress. safety education completed.
[2022-01-18] MEDS: NORepinephrine 8mg/ 250ml NS 250 ML IV SCH ×2 (20:25→21:37)
[2022-01-18] MEDS ORDERED: VANCOMYCIN LEVEL IV ONE (21:30)
[2022-01-19] VITALS (23 sets, daily range): BP systolic 100–128; BP diastolic 42–64
--- NOTE | 2022-01-19 00:29 | NUR ---
BP maintained within parameters with levophed off. dobutamine at 3mcg, HR 75, afib. Sats 94% on 4LNC
[2022-01-19] MEDS: VANCOMYCIN LEVEL IV SCH (01:57)
[2022-01-19 02:19] LABS: BASOPHILS % (AUTO) 0.4 % (0-1); EOSINOPHILS # (AUTO) 0.2 X10'3 (0-0.9); EOSINOPHILS % (AUTO) 4.2 % (0-6); HEMATOCRIT 31.6 % (42.0-52.0); HEMOGLOBIN 10.7 g/dl (14.0-17.9); LYMPHOCYTES # (AUTO) 0.7 X10'3 (1.1-4.8); LYMPHOCYTES % (AUTO) 14.6 % (21-51); MEAN CORPUSCULAR HEMOGLOBIN 28.3 PG (27.0-31.0); MEAN CORPUSCULAR HGB CONC 33.8 g/dL (33.0-36.5); MEAN CORPUSCULAR VOLUME 83.8 FL (78-98); MEAN PLATELET VOLUME 9.4 FL (7.4-10.4); MONOCYTES # (AUTO) 0.5 X10'3 (0-0.9); MONOCYTES % (AUTO) 10.8 % (2-12); NEUTROPHILS # (AUTO) 3.5 X10'3 (1.8-7.7); PLATELET COUNT 89 X10'3 (140-440); RED BLOOD COUNT 3.77 X10'6 (4.70-6.10); RED CELL DISTRIBUTION WIDTH 15.7 % (11.5-14.5)
[2022-01-19 02:46] LABS: ALANINE AMINOTRANSFERASE 93 U/L (12-78); ALBUMIN 1.9 G/DL (3.4-5.0); ALBUMIN/GLOBULIN RATIO 0.6 (1.1-1.5); ALKALINE PHOSPHATASE 127 IU/L (46-116); ANION GAP 12 (8-16); ASPARTATE AMINO TRANSFERASE 50 U/L (10-37); BLOOD UREA NITROGEN 79 MG/DL (7-18); BUN/CREATININE RATIO 16.2 (5.4-32.0); CALCIUM 8.1 MG/DL (8.5-10.1); CHLORIDE 89 MMOL/L (99-107); CREATININE 4.88 MG/DL (0.60-1.10); GLUCOSE 115 MG/DL (70-104); MAGNESIUM 1.8 MG/DL (1.5-2.4); PHOSPHORUS 7.5 MG/DL (2.3-4.5); POTASSIUM 3.1 MMOL/L (3.5-5.1); SODIUM 134 MMOL/L (135-145); TOTAL CARBON DIOXIDE 33.1 MMOL/L (24-32); TOTAL PROTEIN 5.2 G/DL (6.4-8.2); VANCOMYCIN,RANDOM 19.7 UG/ML; eGFR 12 ML/MIN
[2022-01-19 02:56] LABS: APTT 80 SECONDS (22-32)
[2022-01-19] MEDS: potassium Cl 20mEq/100mL bag 100 ML IV PRN ×4 (03:57→15:33)
[2022-01-19] MEDS: acetaminophen 325mg tablet PO PRN (06:05)
--- NOTE | 2022-01-19 06:32 | NUR ---
Problems reprioritized. Patient report given, questions answered & plan of care reviewed with Yolanda ROSA.
--- NOTE | 2022-01-19 06:54 | NUR ---
Patient in room ICU 2037. I have received report from Karmen ROSA and had the opportunity to ask questions and assume patient care. Pt semi fowlers in bed, alert to voice, mentation continues to improve. levophed continues off, BP stable. safety measures in place. Dobut@3, amio@ 0.5; safety, infection, respiratory education completed with attentive pt. reinforcement needed.
[2022-01-19] MEDS: K, MAG and/or Phos replacement - Verify level? MC SCH (08:00)
[2022-01-19] MEDS: insulin glargine (Lantus) pen - multi-dose SQ SCH ×2 (08:00→20:00)
[2022-01-19] MEDS: polyethylene glycol 3350 17gm powd pack PO SCH (08:00)
[2022-01-19] MEDS: piperacillin/tazo 3.375gm/50ml 50 ML IV SCH ×2 (08:18→20:26)
[2022-01-19] MEDS: DOBUTamine-DoBUTrex 500mg/D5W 250 ML IV SCH (08:19)
[2022-01-19] MEDS: pantoprazole 40MG/NS 100ML BAG 100 ML IV SCH ×2 (08:19→20:29)
--- NOTE | 2022-01-19 08:53 | NUR ---
QT interval widening. Dr. Schaeffer notified. discussed amio and widening QT interval. per Dr. Schaeffer continue amio. change to amio 400mgp.o. BID (first dose now) and stop IV amio 2 hrs after p.o. taken.
--- NOTE | 2022-01-19 09:10 | NUR ---
Dr. Schaeffer rounding on pt. discussed pain management, and pt's continued pain after tylenol administration. Dr. Schaeffer decline request for additional pain rx. new order to stop amio gtt two hrs after amio 400mg BID first dose given. Dr. Scaheffer wants to transfer pt to floor. keep potassium >4, Mag > 2. replace per protocol per Dr. Schaeffer.
[2022-01-19] MEDS: amiodarone 200mg tablet PO SCH ×2 (09:34→20:26)
[2022-01-19] MEDS ORDERED: PEG 400/HYPROMELLOSE/GLYCERIN 15ml bottle EACHEYE PRN (10:00)
[2022-01-19] MEDS ORDERED: potassium CL 10mEq/100ml bag 100 ML IV PRN (10:40)
[2022-01-19] MEDS ORDERED: magnesium 2GM in 50ml NS 50 ML IV PRN (10:40)
--- NOTE | 2022-01-19 11:28 | NUR ---
Dr. Jimenes rounded on pt. discussed K replacement per Dr. Jimenes, replace per normal K cardiac replacement protocol.
[2022-01-19] MEDS: calcium acetate 667mg (PhosLO) capsule PO SCH ×2 (13:11→18:14)
--- NOTE | 2022-01-19 13:31 | NUR ---
Pt shaved, bathed, complete bed change. pt happy and discussing pending surgery openly. pt verbalizing existential statements related to and acceptance. pt encouraged to verbalize feelings. pt overall glad for surgery and loves his family.
[2022-01-19] MEDS: magnesium 4gm in 100ml NS 100 ML IV PRN (15:34)
--- NOTE | 2022-01-19 17:30 | NUR ---
Dr. Schaeffer instruct this nurse to transfer pt to tele floor as soon as possible. and to pull central line in preparation for going to the floor. pt's son Grant Lacey notified of impending room transfer.
[2022-01-19] MEDS ORDERED: ondansetron 4mg rapidly disintigrating tab PO PRN (17:40)
--- NOTE | 2022-01-19 18:30 | NUR ---
Patient in room ICU 2037. I have received report from Yolanda ROSA and had the opportunity to ask questions and assume patient care. Will call television specialist to give report to transfer.
--- NOTE | 2022-01-19 18:33 | NUR ---
right groin central line discontinued. tip intact. pressure held from 1755 until 1830. pressure dressing placed. ICU corner block cutter placed pressure dressing to area. Problems reprioritized. Patient report given, questions answered & plan of care reviewed with Marissa ROSA. Pt preparing to go to 6722B. breathing even and non labored. alert to voice
--- NOTE | 2022-01-19 19:29 | NUR ---
Problems reprioritized. Patient report given, questions answered & plan of care reviewed with Maribel ROSA. Saud transferred to room 3028B in stable condition and with with all belongings.
[2022-01-20 02:00] VITALS: BP 112/61
[2022-01-20 05:59] LABS: EOSINOPHILS # (AUTO) 0.3 X10'3 (0-0.9); EOSINOPHILS % (AUTO) 5.6 % (0-6); HEMOGLOBIN 11.2 g/dl (14.0-17.9); LYMPHOCYTES # (AUTO) 0.8 X10'3 (1.1-4.8); MEAN CORPUSCULAR HEMOGLOBIN 28.3 PG (27.0-31.0); WHITE BLOOD COUNT 4.7 X10'3 (4.5-11.0)
[2022-01-20 06:00] VITALS: BP 107/61
[2022-01-20 06:02] LABS: BASOPHILS % (AUTO) 0.4 % (0-1); HEMATOCRIT 32.7 % (42.0-52.0); LYMPHOCYTES % (AUTO) 17.4 % (21-51); MEAN CORPUSCULAR HGB CONC 34.1 g/dL (33.0-36.5); MEAN PLATELET VOLUME 9.1 FL (7.4-10.4); MONOCYTES # (AUTO) 0.6 X10'3 (0-0.9); MONOCYTES % (AUTO) 13.6 % (2-12); NEUTROPHILS # (AUTO) 2.9 X10'3 (1.8-7.7); PLATELET COUNT 106 X10'3 (140-440); RED BLOOD COUNT 3.94 X10'6 (4.70-6.10); RED CELL DISTRIBUTION WIDTH 15.4 % (11.5-14.5)
[2022-01-20 06:09] LABS: APTT 62 SECONDS (22-32)
[2022-01-20 06:20] LABS: ALANINE AMINOTRANSFERASE 70 U/L (12-78); ALBUMIN 1.9 G/DL (3.4-5.0); ALBUMIN/GLOBULIN RATIO 0.5 (1.1-1.5); ALKALINE PHOSPHATASE 133 IU/L (46-116); ANION GAP 15 (8-16); ASPARTATE AMINO TRANSFERASE 37 U/L (10-37); BILIRUBIN,TOTAL 1.1 MG/DL (0.1-1.0); BLOOD UREA NITROGEN 77 MG/DL (7-18); BUN/CREATININE RATIO 15.7 (5.4-32.0); CALCIUM 8.2 MG/DL (8.5-10.1); CHLORIDE 89 MMOL/L (99-107); CREATININE 4.89 MG/DL (0.60-1.10); GLUCOSE 121 MG/DL (70-104); MAGNESIUM 2.5 MG/DL (1.5-2.4); PHOSPHORUS 6.5 MG/DL (2.3-4.5); POTASSIUM 3.2 MMOL/L (3.5-5.1); SODIUM 134 MMOL/L (135-145); TOTAL CARBON DIOXIDE 30.5 MMOL/L (24-32); TOTAL PROTEIN 5.4 G/DL (6.4-8.2); VANCOMYCIN,RANDOM 15.7 UG/ML; eGFR 12 ML/MIN
--- NOTE | 2022-01-20 06:57 | NUR ---
Problems reprioritized. Patient report given, questions answered & plan of care reviewed with Michelle
[2022-01-20] MEDS: VANCOMYCIN LEVEL IV SCH (07:30)
[2022-01-20] MEDS: insulin glargine (Lantus) pen - multi-dose SQ SCH ×2 (08:00→20:00)
[2022-01-20] MEDS: amiodarone 200mg tablet PO SCH ×2 (08:00→19:27)
[2022-01-20] MEDS: calcium acetate 667mg (PhosLO) capsule PO SCH ×3 (08:00→23:42)
[2022-01-20] MEDS: polyethylene glycol 3350 17gm powd pack PO SCH (08:00)
[2022-01-20] MEDS: pantoprazole 40MG/NS 100ML BAG 100 ML IV SCH ×2 (08:00→19:32)
[2022-01-20] MEDS: piperacillin/tazo 3.375gm/50ml 50 ML IV SCH ×2 (08:00→20:20)
[2022-01-20] MEDS: K, MAG and/or Phos replacement - Verify level? MC SCH (08:00)
[2022-01-20] MEDS: acetaminophen 325mg tablet PO PRN (09:55)
[2022-01-20] MEDS ORDERED: phytonadione inj. 5 MG in normal saline 100ml IV soln 100 ML IV ONE (10:00)
--- NOTE | 2022-01-20 10:34 | NUR ---
PAGER ID: [phone] MESSAGE: FERNANDO PATRICK, THE RN FOR 3028B, DOMINICK, IS LOOKING FOR PAIN MED STRONGER THAN TYLENOL. THX.
[2022-01-20 11:00] VITALS: BP 103/58
--- NOTE | 2022-01-20 13:11 | NUR ---
Sent to Dr. Elias: [id number] Vinnie: FYI - pt converted from aflutter to SR with a 2nd degree heart block at 12:42 today.
[2022-01-20] MEDS: HYDROcodone/acetaminophen 5mg/325mg tablet PO PRN ×2 (14:16→20:20)
[2022-01-20 16:00] VITALS: BP 108/54
[2022-01-20 17:34] LABS: URINE AMPHETAMINE SCREEN NEGATIVE (Neg); URINE BARBITUATE SCREEN NEGATIVE (Neg); URINE BENZODIAZEPINES SCREEN NEGATIVE (Neg); URINE CANNABINOID SCREEN NEGATIVE (Neg); URINE COCAINE SCREEN NEGATIVE (Neg); URINE METHADONE SCREEN NEGATIVE (Neg); URINE OPIATE SCREEN NEGATIVE (Neg); URINE PHENCYCLIDINE SCREEN NEGATIVE (Neg)
[2022-01-20 18:00] VITALS: BP 101/55
[2022-01-20 22:00] VITALS: BP 111/58
[2022-01-21] MEDS: acetaminophen 325mg tablet PO PRN (00:49)
[2022-01-21 02:00] VITALS: BP 136/81
[2022-01-21 06:04] LABS: BASOPHILS % (AUTO) 0.5 % (0-1); EOSINOPHILS # (AUTO) 0.4 X10'3 (0-0.9); EOSINOPHILS % (AUTO) 6.6 % (0-6); HEMOGLOBIN 11.2 g/dl (14.0-17.9); LYMPHOCYTES % (AUTO) 16.1 % (21-51); MEAN CORPUSCULAR HEMOGLOBIN 28.3 PG (27.0-31.0); MEAN CORPUSCULAR HGB CONC 34.1 g/dL (33.0-36.5); MEAN CORPUSCULAR VOLUME 83.1 FL (78-98); MEAN PLATELET VOLUME 8.9 FL (7.4-10.4); MONOCYTES # (AUTO) 0.7 X10'3 (0-0.9); MONOCYTES % (AUTO) 11.4 % (2-12); NEUTROPHILS # (AUTO) 4.1 X10'3 (1.8-7.7); NEUTROPHILS % (AUTO) 65.4 % (42-75); PLATELET COUNT 125 X10'3 (140-440); RED BLOOD COUNT 3.97 X10'6 (4.70-6.10); RED CELL DISTRIBUTION WIDTH 15.2 % (11.5-14.5); WHITE BLOOD COUNT 6.3 X10'3 (4.5-11.0)
[2022-01-21 06:05] LABS: APTT 59 SECONDS (22-32)
[2022-01-21 06:13] LABS: ALANINE AMINOTRANSFERASE 57 U/L (12-78); ALBUMIN/GLOBULIN RATIO 0.5 (1.1-1.5); ALKALINE PHOSPHATASE 139 IU/L (46-116); ANION GAP 9 (8-16); ASPARTATE AMINO TRANSFERASE 32 U/L (10-37); BILIRUBIN,TOTAL 1.2 MG/DL (0.1-1.0); BLOOD UREA NITROGEN 78 MG/DL (7-18); BUN/CREATININE RATIO 16.2 (5.4-32.0); CALCIUM 8.7 MG/DL (8.5-10.1); CHLORIDE 91 MMOL/L (99-107); CREATININE 4.82 MG/DL (0.60-1.10); GLUCOSE 118 MG/DL (70-104); MAGNESIUM 2.3 MG/DL (1.5-2.4); PHOSPHORUS 5.8 MG/DL (2.3-4.5); POTASSIUM 3.4 MMOL/L (3.5-5.1); SODIUM 132 MMOL/L (135-145); TOTAL CARBON DIOXIDE 32.5 MMOL/L (24-32); TOTAL PROTEIN 5.7 G/DL (6.4-8.2); VANCOMYCIN,RANDOM 13.1 UG/ML; eGFR 12 ML/MIN
[2022-01-21] MEDS: insulin glargine (Lantus) pen - multi-dose SQ SCH ×2 (07:11→20:00)
[2022-01-21] MEDS: pantoprazole 40MG/NS 100ML BAG 100 ML IV SCH ×2 (07:19→19:54)
[2022-01-21] MEDS: piperacillin/tazo 3.375gm/50ml 50 ML IV SCH (07:22)
[2022-01-21] MEDS: polyethylene glycol 3350 17gm powd pack PO SCH (07:23)
[2022-01-21] MEDS: amiodarone 200mg tablet PO SCH ×2 (07:23→19:52)
[2022-01-21] MEDS: K, MAG and/or Phos replacement - Verify level? MC SCH (07:23)
[2022-01-21 07:30] VITALS: BP 128/72
[2022-01-21] MEDS: VANCOMYCIN LEVEL IV SCH (07:30)
[2022-01-21] MEDS: calcium acetate 667mg (PhosLO) capsule PO SCH ×3 (08:00→17:31)
--- NOTE | 2022-01-21 08:38 | NUR ---
PAGER ID: [phone] MESSAGE: [id number] Vinnie F: patients phos level 5.8. he has phos-lo scheduled TID. would you like this med to be given or dc'd? thanks, malou [phone]
--- NOTE | 2022-01-21 08:56 | NUR ---
Reassessment: Pt has been placed on SB6/thin diet per PROCESSOR HELPER recs, w/ avg intake 52% of meals partially meeting needs. Pt documented as A&O x 2 and confused. Will recommend Ensure Enlive BID to assist w/ meeting needs. LBM 01/18 receiving routine bowel care. Will continue to monitor. Rec: 1. Continue SB6 diet per PROCESSOR HELPER recs 2. Ensure Enlive BIDBD: pending MD verification 3. Bowel care per rx 4. Weekly wts Addendum: 01/21/22 at [address] Amended: Links added.
[2022-01-21 11:02] VITALS: BP 131/65
--- NOTE | 2022-01-21 13:56 | NUR ---
PRESSURE ULCER EDUCATION: DEFINITION: A pressure ulcer is an area of skin that breaks down when you stay in one position too long. The constant pressure against the skin reduces the blood flow to that area and the affected tissue dies. CAUSES: "Being bedridden or in a wheelchair "Fragile skin "Having a chronic condition, such as diabetes or vascular disease "Inability to move certain parts of your body without assistance "Older age "Incontinence of urine or stool SYMPTOMS: "A reddened area that DOES NOT turn white when pressed on - this can be the beginning of a pressure ulcer "A blister, deep sore or a crater - these can be advanced pressure ulcers FIRST AID: "Relieve the pressure on this area "Keep the area clean and dry "Call your primary doctor if you see any of the above symptoms "DO NOT massage the area "DO NOT use a donut shaped or ring shaped pillow- these actually interfere with the blood flow and cause complications PREVENTION: "Check for pressure ulcers everyday "Change position at least every two hours to relieve pressure "Use items that help relieve pressure- pillows, sheepskin, foam padding, and powders. "Keep skin clean and dry "Eat healthy well balanced meals "Exercise daily IF YOU SEE ANY OF THESE SYMPTOMS WHILE IN THE HOSPITAL - TELL YOUR NURSE IMMEDIATELY. IF YOU SEE ANY OF THESE SYMPTOMS WHILE AT HOME OR HAVE ANY QUESTIONS OR CONCERNS ABOUT PRESSURE ULCERS - CALL YOUR PRIMARY DOCTOR IMMEDIATELY. Addendum: 01/21/22 at 1357 by Doris Gregorio LVN Amended: Links added.
[2022-01-21] MEDS ORDERED: midazolam 1 mg/ML 2ml injection ONE (14:49)
[2022-01-21] MEDS ORDERED: iohexol 350MG/ML 100ml bottle IV ONE ×2 (14:49→16:12)
[2022-01-21] MEDS ORDERED: verapamil 2.5 mg/ml inj IV ONE (14:49)
[2022-01-21] MEDS ORDERED: fentaNYL/PF 50MCG/1 ML 2ML syringe ONE (14:49)
[2022-01-21] MEDS ORDERED: LIDOcaine 1% 30ml preserv. free vial ONE (14:49)
[2022-01-21] MEDS ORDERED: heparin 1,000unit/ml 10ml vial 10 ML ONE (14:50)
--- NOTE | 2022-01-21 14:51 | NUR ---
Page sent to PICC RN... [id number] Mary Kay [place]: patient needs IV access on left side for labor crew supervisor. unable to obtain. thanks! [phone]
[2022-01-21] MEDS ORDERED: nitroGLYCERIN-Tridil 50MG/D5W 250 ML IV ONE (14:53)
[2022-01-21] MEDS ORDERED: LIDOCAINE 2% w/EPI 1:100:000 30mL injection MDV**cath lab 1 only ONE (15:09)
--- NOTE | 2022-01-21 15:12 | NUR ---
patient picked up for labor service representative.
[2022-01-21] MEDS ORDERED: ceFAZolin 1000mg inj ONE ×2 (15:18→15:24)
[2022-01-21 18:00] VITALS: BP 125/60
--- NOTE | 2022-01-21 18:08 | NUR ---
RELEASED 3ML OF HEMOSTATIC WRIST BAND. NO BLEEDING NOTED.
--- NOTE | 2022-01-21 18:23 | NUR ---
Problems reprioritized. Patient report given, questions answered & plan of care reviewed with MOE lang .
[2022-01-21 22:00] VITALS: BP 111/58
[2022-01-21] MEDS: POTASSIUM BICARB 20meq eff tab 20 MEQ TABLET.EFF PO PRN (22:00)
[2022-01-21] MEDS: HYDROcodone/acetaminophen 5mg/325mg tablet PO PRN (22:01)
[2022-01-22 02:00] VITALS: BP 113/57
[2022-01-22] MEDS: POTASSIUM BICARB 20meq eff tab 20 MEQ TABLET.EFF PO PRN ×2 (05:55→10:22)
[2022-01-22 06:00] VITALS: BP 111/62
[2022-01-22 06:00] LABS: BASOPHILS # (AUTO) 0.1 X10'3 (0-0.2); BASOPHILS % (AUTO) 0.6 % (0-1); EOSINOPHILS # (AUTO) 0.4 X10'3 (0-0.9); HEMATOCRIT 33.6 % (42.0-52.0); HEMOGLOBIN 11.2 g/dl (14.0-17.9); LYMPHOCYTES % (AUTO) 11.9 % (21-51); MEAN CORPUSCULAR HEMOGLOBIN 28.2 PG (27.0-31.0); MEAN CORPUSCULAR HGB CONC 33.5 g/dL (33.0-36.5); MEAN CORPUSCULAR VOLUME 84.2 FL (78-98); MEAN PLATELET VOLUME 8.9 FL (7.4-10.4); MONOCYTES # (AUTO) 0.8 X10'3 (0-0.9); MONOCYTES % (AUTO) 9.1 % (2-12); NEUTROPHILS # (AUTO) 6.3 X10'3 (1.8-7.7); NEUTROPHILS % (AUTO) 73.4 % (42-75); PLATELET COUNT 161 X10'3 (140-440); RED BLOOD COUNT 3.99 X10'6 (4.70-6.10); RED CELL DISTRIBUTION WIDTH 15.2 % (11.5-14.5); WHITE BLOOD COUNT 8.6 X10'3 (4.5-11.0)
[2022-01-22 06:17] LABS: APTT 53 SECONDS (22-32)
[2022-01-22 06:29] LABS: ALANINE AMINOTRANSFERASE 39 U/L (12-78); ALBUMIN/GLOBULIN RATIO 0.5 (1.1-1.5); ALKALINE PHOSPHATASE 140 IU/L (46-116); ANION GAP 9 (8-16); ASPARTATE AMINO TRANSFERASE 27 U/L (10-37); BLOOD UREA NITROGEN 71 MG/DL (7-18); BUN/CREATININE RATIO 16.4 (5.4-32.0); CALCIUM 8.4 MG/DL (8.5-10.1); CHLORIDE 92 MMOL/L (99-107); CREATININE 4.32 MG/DL (0.60-1.10); GLUCOSE 123 MG/DL (70-104); MAGNESIUM 2.2 MG/DL (1.5-2.4); PHOSPHORUS 5.2 MG/DL (2.3-4.5); SODIUM 133 MMOL/L (135-145); TOTAL CARBON DIOXIDE 31.8 MMOL/L (24-32); TOTAL PROTEIN 5.7 G/DL (6.4-8.2); VANCOMYCIN,RANDOM 11.5 UG/ML; eGFR 13 ML/MIN
--- NOTE | 2022-01-22 06:50 | NUR ---
Patient in room PCU 3028. I have received report from Maribel and had the opportunity to ask questions and assume patient care.
[2022-01-22] MEDS: K, MAG and/or Phos replacement - Verify level? MC SCH (07:28)
[2022-01-22] MEDS: lactose-reduced food (Ensure Enlive) - 237ml bottle PO SCH ×2 (07:30→17:30)
[2022-01-22] MEDS: polyethylene glycol 3350 17gm powd pack PO SCH (09:02)
[2022-01-22] MEDS: calcium acetate 667mg (PhosLO) capsule PO SCH ×3 (09:02→17:57)
[2022-01-22] MEDS: amiodarone 200mg tablet PO SCH ×2 (09:02→20:40)
[2022-01-22] MEDS: pantoprazole 40MG/NS 100ML BAG 100 ML IV SCH ×2 (09:03→20:40)
[2022-01-22 11:13] VITALS: BP 123/54
[2022-01-22] MEDS: HYDROcodone/acetaminophen 5mg/325mg tablet PO PRN (12:40)
[2022-01-22 15:50] VITALS: BP 126/69
[2022-01-22] MEDS: insulin glargine (Lantus) pen - multi-dose SQ SCH ×2 (20:00→22:30)
[2022-01-22 20:40] VITALS: BP 135/42
[2022-01-22] MEDS: metoprolol tartrate 12.5mg (1/2 tablet) PO SCH (20:40)
--- NOTE | 2022-01-22 22:00 | NUR ---
notified Blanca - Adjunct Physics Instructor of patient's word searching. she looked at chart and suggested to get CT scan and follow up with primary MD in am. pt already on aspirin and lipitor, scds, ordered ST for speech issues.
[2022-01-22 23:22] VITALS: BP 125/64
[2022-01-23 02:30] VITALS: BP 127/69
[2022-01-23 06:00] VITALS: BP 129/70
--- NOTE | 2022-01-23 06:32 | NUR ---
reported to days. noted neuro changes pt states are "new" to him
--- NOTE | 2022-01-23 06:33 | NUR ---
Patient in room PCU 3028. I have received report from Nataliia and had the opportunity to ask questions and assume patient care.
[2022-01-23 06:43] LABS: BASOPHILS % (AUTO) 0.5 % (0-1); EOSINOPHILS # (AUTO) 0.3 X10'3 (0-0.9); EOSINOPHILS % (AUTO) 3.3 % (0-6); HEMATOCRIT 37.1 % (42.0-52.0); HEMOGLOBIN 12.4 g/dl (14.0-17.9); LYMPHOCYTES # (AUTO) 1.3 X10'3 (1.1-4.8); MEAN CORPUSCULAR HEMOGLOBIN 28.2 PG (27.0-31.0); MEAN CORPUSCULAR HGB CONC 33.4 g/dL (33.0-36.5); MEAN CORPUSCULAR VOLUME 84.4 FL (78-98); MEAN PLATELET VOLUME 8.4 FL (7.4-10.4); MONOCYTES # (AUTO) 0.8 X10'3 (0-0.9); MONOCYTES % (AUTO) 7.9 % (2-12); NEUTROPHILS # (AUTO) 7.5 X10'3 (1.8-7.7); NEUTROPHILS % (AUTO) 75.3 % (42-75); PLATELET COUNT 208 X10'3 (140-440); RED BLOOD COUNT 4.39 X10'6 (4.70-6.10); RED CELL DISTRIBUTION WIDTH 15.2 % (11.5-14.5)
[2022-01-23 06:46] LABS: APTT 44 SECONDS (22-32)
[2022-01-23 07:02] LABS: ALANINE AMINOTRANSFERASE 29 U/L (12-78); ALBUMIN 2.2 G/DL (3.4-5.0); ALBUMIN/GLOBULIN RATIO 0.6 (1.1-1.5); ALKALINE PHOSPHATASE 152 IU/L (46-116); ANION GAP 12 (8-16); ASPARTATE AMINO TRANSFERASE 26 U/L (10-37); BILIRUBIN,TOTAL 1.1 MG/DL (0.1-1.0); BLOOD UREA NITROGEN 67 MG/DL (7-18); BUN/CREATININE RATIO 18.3 (5.4-32.0); CALCIUM 9.1 MG/DL (8.5-10.1); CHLORIDE 93 MMOL/L (99-107); CHOL/HDL RATIO 9.9 (0.00-4.99); CHOLESTEROL 258 MG/DL (0-200); CREATININE 3.67 MG/DL (0.60-1.10); GLUCOSE 132 MG/DL (70-104); HDL CHOLESTEROL 26 MG/DL (35-60); LDL CHOLESTEROL 181 MG/DL (50-100); MAGNESIUM 2.2 MG/DL (1.5-2.4); PHOSPHORUS 4.1 MG/DL (2.3-4.5); POTASSIUM 3.4 MMOL/L (3.5-5.1); SODIUM 133 MMOL/L (135-145); TOTAL CARBON DIOXIDE 28.1 MMOL/L (24-32); TOTAL PROTEIN 6.2 G/DL (6.4-8.2); TRIGLYCERIDES 264 MG/DL (20-135); VANCOMYCIN,RANDOM 8.9 UG/ML; eGFR 16 ML/MIN
[2022-01-23] MEDS: lactose-reduced food (Ensure Enlive) - 237ml bottle PO SCH ×2 (07:30→17:30)
[2022-01-23] MEDS: K, MAG and/or Phos replacement - Verify level? MC SCH (08:00)
[2022-01-23] MEDS: calcium acetate 667mg (PhosLO) capsule PO SCH ×3 (08:25→17:47)
[2022-01-23] MEDS: aspirin 81mg tab.chew PO SCH (08:25)
[2022-01-23] MEDS: metoprolol tartrate 12.5mg (1/2 tablet) PO SCH ×2 (08:25→21:20)
[2022-01-23] MEDS: neomy sulf/bacitrac zn/polymixin b oint 14.2 gm tube TP SCH ×3 (08:26→22:00)
[2022-01-23] MEDS: amiodarone 200mg tablet PO SCH ×2 (08:26→21:20)
[2022-01-23] MEDS: pantoprazole 40MG/NS 100ML BAG 100 ML IV SCH ×2 (08:26→19:23)
[2022-01-23] MEDS: atorvastatin 20mg tablet PO SCH (08:26)
[2022-01-23] MEDS: polyethylene glycol 3350 17gm powd pack PO SCH (08:26)
[2022-01-23 10:54] VITALS: BP 138/75
[2022-01-23] MEDS: POTASSIUM BICARB 20meq eff tab 20 MEQ TABLET.EFF PO PRN ×2 (11:01→15:24)
--- NOTE | 2022-01-23 11:05 | NUR ---
PAGER ID: [phone] MESSAGE: Grant [place] in [id number] - Pt wondering about resuming home medications. Also can we discontinue the BID lantus? Might have been ICU order. -Kathy [phone]
[2022-01-23] MEDS: HYDROcodone/acetaminophen 5mg/325mg tablet PO PRN (12:11)
--- NOTE | 2022-01-23 15:56 | NUR ---
PAGER ID: [phone] MESSAGE: Grant [place] in [id number] - Can we resume pt's home meds? Also, Humilin and lantus orders still on JUN from ICU. -Kathy [phone]
[2022-01-23 16:08] VITALS: BP 126/62
[2022-01-23] MEDS ORDERED: naproxen 500mg tablet PO PRN (17:15)
[2022-01-23 18:00] VITALS: BP 133/72
--- NOTE | 2022-01-23 18:12 | NUR ---
Problems reprioritized. Patient report given, questions answered & plan of care reviewed with Nataliia.
[2022-01-23] MEDS ORDERED: dabigatran 150mg capsule PO SCH (20:00)
[2022-01-23 22:00] VITALS: BP 117/59
[2022-01-24 02:00] VITALS: BP 130/70
[2022-01-24 06:00] VITALS: BP 139/49
[2022-01-24 06:42] LABS: BASOPHILS % (AUTO) 0.4 % (0-1); EOSINOPHILS # (AUTO) 0.4 X10'3 (0-0.9); EOSINOPHILS % (AUTO) 3.3 % (0-6); HEMATOCRIT 35.8 % (42.0-52.0); HEMOGLOBIN 12.1 g/dl (14.0-17.9); LYMPHOCYTES # (AUTO) 1.3 X10'3 (1.1-4.8); MEAN CORPUSCULAR HEMOGLOBIN 28.5 PG (27.0-31.0); MEAN CORPUSCULAR HGB CONC 33.9 g/dL (33.0-36.5); MEAN CORPUSCULAR VOLUME 84.2 FL (78-98); MEAN PLATELET VOLUME 8.3 FL (7.4-10.4); MONOCYTES # (AUTO) 0.7 X10'3 (0-0.9); MONOCYTES % (AUTO) 6.5 % (2-12); NEUTROPHILS # (AUTO) 8.4 X10'3 (1.8-7.7); NEUTROPHILS % (AUTO) 77.8 % (42-75); PLATELET COUNT 245 X10'3 (140-440); RED BLOOD COUNT 4.25 X10'6 (4.70-6.10); RED CELL DISTRIBUTION WIDTH 15.1 % (11.5-14.5); WHITE BLOOD COUNT 10.9 X10'3 (4.5-11.0)
[2022-01-24 06:47] LABS: APTT 44 SECONDS (22-32)
--- NOTE | 2022-01-24 06:47 | NUR ---
pt voided 300ml, then post void was 150ml.
--- NOTE | 2022-01-24 06:47 | NUR ---
reported to days. noted pt back to bed from sitting. was able to use urinal by himself with a little spilling.
--- NOTE | 2022-01-24 06:49 | NUR ---
reported to days. noted pt was a DNR and is now a full code for "procedures" and patient and son may wish to change code status back to DNR. day RN verbalized understanding.
[2022-01-24] MEDS ORDERED: levoTHYROXINE 100mcg tablet PO SCH (07:00)
[2022-01-24 07:16] LABS: ALANINE AMINOTRANSFERASE 24 U/L (12-78); ALBUMIN 2.1 G/DL (3.4-5.0); ALBUMIN/GLOBULIN RATIO 0.6 (1.1-1.5); ALKALINE PHOSPHATASE 141 IU/L (46-116); ANION GAP 9 (8-16); ASPARTATE AMINO TRANSFERASE 24 U/L (10-37); BLOOD UREA NITROGEN 59 MG/DL (7-18); BUN/CREATININE RATIO 17.9 (5.4-32.0); CALCIUM 8.9 MG/DL (8.5-10.1); CHLORIDE 95 MMOL/L (99-107); GLUCOSE 147 MG/DL (70-104); PHOSPHORUS 3.1 MG/DL (2.3-4.5); POTASSIUM 3.3 MMOL/L (3.5-5.1); SODIUM 134 MMOL/L (135-145); TOTAL CARBON DIOXIDE 30.3 MMOL/L (24-32); TOTAL PROTEIN 5.8 G/DL (6.4-8.2); TRIGLYCERIDES 241 MG/DL (20-135); VANCOMYCIN,RANDOM 7.4 UG/ML; eGFR 18 ML/MIN
[2022-01-24] MEDS: lactose-reduced food (Ensure Enlive) - 237ml bottle PO SCH ×2 (07:30→17:30)
[2022-01-24] MEDS: pantoprazole 40MG/NS 100ML BAG 100 ML IV SCH ×2 (07:50→20:04)
[2022-01-24] MEDS: atorvastatin 20mg tablet PO SCH (07:51)
[2022-01-24] MEDS: calcium acetate 667mg (PhosLO) capsule PO SCH ×3 (07:51→18:09)
[2022-01-24] MEDS: amiodarone 200mg tablet PO SCH ×2 (07:52→20:04)
[2022-01-24] MEDS: amLODIPine 5mg tablet PO SCH (07:52)
[2022-01-24] MEDS: aspirin 81mg tab.chew PO SCH (07:52)
[2022-01-24] MEDS: POTASSIUM BICARBONATE/CIT AC 10 MEQ TABLET.EFF PO PRN ×3 (07:53→18:08)
[2022-01-24] MEDS: neomy sulf/bacitrac zn/polymixin b oint 14.2 gm tube TP SCH ×3 (07:54→20:12)
[2022-01-24] MEDS: metoprolol tartrate 12.5mg (1/2 tablet) PO SCH ×2 (07:55→20:08)
[2022-01-24] MEDS: K, MAG and/or Phos replacement - Verify level? MC SCH (08:00)
[2022-01-24] MEDS ORDERED: non-formulary drug (Losartan Potassium 1 TAB) PO SCH (08:00)
[2022-01-24] MEDS ORDERED: chlorthalidone 25mg tablet PO SCH (08:00)
[2022-01-24] MEDS: polyethylene glycol 3350 17gm powd pack PO SCH (08:19)
[2022-01-24] MEDS: levoTHYROXINE 100mcg tablet PO SCH (09:03)
[2022-01-24] MEDS: HYDROcodone/acetaminophen 5mg/325mg tablet PO PRN ×2 (09:03→16:13)
[2022-01-24 11:00] VITALS: BP 110/61
[2022-01-24 15:00] VITALS: BP 127/65
[2022-01-24] MEDS ORDERED: METFORMIN HCL PO SCH (17:00)
[2022-01-24 18:00] VITALS: BP 127/65
--- NOTE | 2022-01-24 18:42 | NUR ---
Problems reprioritized. Patient report given, questions answered & plan of care reviewed with Elisha ROSA, patient stable at transfer of care.
--- NOTE | 2022-01-24 18:47 | NUR ---
Patient in room PCU 3028. I have received report from MOE Menezes and MOE Newell and had the opportunity to ask questions and assume patient care.
[2022-01-24] MEDS: acetaminophen 325mg tablet PO PRN (20:12)
[2022-01-24 22:00] VITALS: BP_SYST 117; BP_SYST 129; BP_DIAS 77; BP_DIAS 79
[2022-01-25] MEDS: HYDROcodone/acetaminophen 5mg/325mg tablet PO PRN ×4 (00:11→21:11)
[2022-01-25 02:00] VITALS: BP 126/63
--- NOTE | 2022-01-25 06:21 | NUR ---
Problems reprioritized. Patient report given, questions answered & plan of care reviewed with MOE Aguilar.
[2022-01-25 06:30] VITALS: BP 132/78
--- NOTE | 2022-01-25 06:30 | NUR ---
Patient in room PCU 3028. I have received report from Elisha ROSA and had the opportunity to ask questions and assume patient care.Bedside report completed. Pt sleeping, Call light in reach. Addendum: 01/25/22 at 0715 by Osiris Woodard RN Amended: Links added.
[2022-01-25 06:50] LABS: APTT 42 SECONDS (22-32)
[2022-01-25 06:58] LABS: BASOPHILS % (AUTO) 0.4 % (0-1); EOSINOPHILS # (AUTO) 0.4 X10'3 (0-0.9); EOSINOPHILS % (AUTO) 3.8 % (0-6); HEMATOCRIT 35.2 % (42.0-52.0); LYMPHOCYTES # (AUTO) 1.5 X10'3 (1.1-4.8); LYMPHOCYTES % (AUTO) 13.1 % (21-51); MEAN CORPUSCULAR HEMOGLOBIN 28.7 PG (27.0-31.0); MEAN CORPUSCULAR VOLUME 84.4 FL (78-98); MEAN PLATELET VOLUME 8.2 FL (7.4-10.4); MONOCYTES # (AUTO) 0.8 X10'3 (0-0.9); MONOCYTES % (AUTO) 6.7 % (2-12); NEUTROPHILS # (AUTO) 8.7 X10'3 (1.8-7.7); PLATELET COUNT 286 X10'3 (140-440); RED BLOOD COUNT 4.18 X10'6 (4.70-6.10); WHITE BLOOD COUNT 11.4 X10'3 (4.5-11.0)
[2022-01-25 07:10] LABS: ALANINE AMINOTRANSFERASE 22 U/L (12-78); ALBUMIN 2.3 G/DL (3.4-5.0); ALBUMIN/GLOBULIN RATIO 0.6 (1.1-1.5); ALKALINE PHOSPHATASE 133 IU/L (46-116); ANION GAP 7 (8-16); ASPARTATE AMINO TRANSFERASE 26 U/L (10-37); BILIRUBIN,TOTAL 0.9 MG/DL (0.1-1.0); BLOOD UREA NITROGEN 54 MG/DL (7-18); BUN/CREATININE RATIO 17.6 (5.4-32.0); CHLORIDE 97 MMOL/L (99-107); CREATININE 3.06 MG/DL (0.60-1.10); GLUCOSE 142 MG/DL (70-104); MAGNESIUM 1.9 MG/DL (1.5-2.4); PHOSPHORUS 2.9 MG/DL (2.3-4.5); POTASSIUM 3.4 MMOL/L (3.5-5.1); SODIUM 135 MMOL/L (135-145); TOTAL CARBON DIOXIDE 31.4 MMOL/L (24-32); TOTAL PROTEIN 5.9 G/DL (6.4-8.2); VANCOMYCIN,RANDOM 5.6 UG/ML; eGFR 20 ML/MIN
[2022-01-25] MEDS: lactose-reduced food (Ensure Enlive) - 237ml bottle PO SCH ×2 (07:30→17:30)
[2022-01-25] MEDS: amiodarone 200mg tablet PO SCH ×2 (07:50→21:04)
[2022-01-25] MEDS: levoTHYROXINE 100mcg tablet PO SCH (07:51)
[2022-01-25] MEDS: aspirin 81mg tab.chew PO SCH (07:52)
[2022-01-25] MEDS: atorvastatin 20mg tablet PO SCH (07:53)
[2022-01-25] MEDS: metoprolol tartrate 12.5mg (1/2 tablet) PO SCH ×2 (07:53→21:05)
[2022-01-25] MEDS: amLODIPine 5mg tablet PO SCH (07:55)
[2022-01-25] MEDS: pantoprazole 40MG/NS 100ML BAG 100 ML IV SCH ×2 (07:56→21:04)
[2022-01-25] MEDS: polyethylene glycol 3350 17gm powd pack PO SCH (07:56)
[2022-01-25] MEDS: calcium acetate 667mg (PhosLO) capsule PO SCH ×3 (07:57→18:25)
[2022-01-25] MEDS: neomy sulf/bacitrac zn/polymixin b oint 14.2 gm tube TP SCH ×3 (07:58→21:12)
[2022-01-25] MEDS: K, MAG and/or Phos replacement - Verify level? MC SCH (08:00)
[2022-01-25 11:00] VITALS: BP 120/60
--- NOTE | 2022-01-25 11:32 | NUR ---
Reassessment: PO intake slightly fluctuates, documented with average 50% PO intake since 01/21 which is fair for age however not meeting estimated nutrient needs. ONS still pending physician approval in EMR. See additional nutrition interventions below that were d/w dietary in hopes of optimizing PO intake. [facility] 01/24. Will continue to follow closely. Recommendations: 1. Continue SB6 diet per INSURANCE COUNSELOR recs 2. Ensure Enlive BIDBD: pending physician approval in EMR 3. Yogurt WB, cottage cheese WL, smoothie WS 4. Encourage PO intake 5. Routine bowel care 6. Weekly scaled weights Addendum: 01/25/22 at [address] Amended: Links added.
[2022-01-25 15:17] VITALS: BP 128/71
[2022-01-25 18:00] VITALS: BP 142/68
--- NOTE | 2022-01-25 19:02 | NUR ---
Problems reprioritized. Patient report given, questions answered & plan of care reviewed with Jake ROSA. Bedside report given. Pt no distress.. Addendum: 01/25/22 at 1903 by Osiris Woodard RN Amended: Links added.
[2022-01-25] MEDS: POTASSIUM BICARB 20meq eff tab 20 MEQ TABLET.EFF PO PRN (21:11)
[2022-01-25 22:00] VITALS: BP 144/72
[2022-01-26 02:00] VITALS: BP 135/79
[2022-01-26] MEDS: POTASSIUM BICARB 20meq eff tab 20 MEQ TABLET.EFF PO PRN ×2 (03:53→21:40)
[2022-01-26 06:00] VITALS: BP 137/67
[2022-01-26 06:30] LABS: BASOPHILS # (AUTO) 0.1 X10'3 (0-0.2); BASOPHILS % (AUTO) 0.5 % (0-1); EOSINOPHILS # (AUTO) 0.4 X10'3 (0-0.9); HEMATOCRIT 35.9 % (42.0-52.0); HEMOGLOBIN 12.1 g/dl (14.0-17.9); LYMPHOCYTES # (AUTO) 1.3 X10'3 (1.1-4.8); LYMPHOCYTES % (AUTO) 10.7 % (21-51); MEAN CORPUSCULAR HEMOGLOBIN 28.1 PG (27.0-31.0); MEAN CORPUSCULAR HGB CONC 33.6 g/dL (33.0-36.5); MEAN CORPUSCULAR VOLUME 83.8 FL (78-98); MEAN PLATELET VOLUME 7.8 FL (7.4-10.4); MONOCYTES # (AUTO) 0.9 X10'3 (0-0.9); MONOCYTES % (AUTO) 7.4 % (2-12); NEUTROPHILS # (AUTO) 9.4 X10'3 (1.8-7.7); NEUTROPHILS % (AUTO) 78.4 % (42-75); PLATELET COUNT 323 X10'3 (140-440); RED BLOOD COUNT 4.29 X10'6 (4.70-6.10); RED CELL DISTRIBUTION WIDTH 14.8 % (11.5-14.5)
[2022-01-26 06:39] LABS: APTT 40 SECONDS (22-32)
[2022-01-26 07:04] LABS: ALBUMIN 2.5 G/DL (3.4-5.0); ANION GAP 7 (8-16); BLOOD UREA NITROGEN 46 MG/DL (7-18); BUN/CREATININE RATIO 16.4 (5.4-32.0); CALCIUM 9.3 MG/DL (8.5-10.1); CHLORIDE 97 MMOL/L (99-107); CREATININE 2.81 MG/DL (0.60-1.10); GLUCOSE 143 MG/DL (70-104); MAGNESIUM 1.8 MG/DL (1.5-2.4); PHOSPHORUS 2.9 MG/DL (2.3-4.5); POTASSIUM 3.7 MMOL/L (3.5-5.1); SODIUM 135 MMOL/L (135-145); TOTAL CARBON DIOXIDE 31.2 MMOL/L (24-32); TOTAL PROTEIN 6.2 G/DL (6.4-8.2); eGFR 22 ML/MIN
[2022-01-26 07:05] LABS: ALANINE AMINOTRANSFERASE 24 U/L (12-78); ALBUMIN/GLOBULIN RATIO 0.7 (1.1-1.5); ALKALINE PHOSPHATASE 136 IU/L (46-116); ASPARTATE AMINO TRANSFERASE 28 U/L (10-37); VANCOMYCIN,RANDOM 4.7 UG/ML
[2022-01-26] MEDS: lactose-reduced food (Ensure Enlive) - 237ml bottle PO SCH ×2 (07:30→17:50)
[2022-01-26] MEDS: polyethylene glycol 3350 17gm powd pack PO SCH (08:00)
[2022-01-26] MEDS: K, MAG and/or Phos replacement - Verify level? MC SCH (08:00)
[2022-01-26] MEDS: amiodarone 200mg tablet PO SCH ×2 (09:12→20:00)
[2022-01-26] MEDS: aspirin 81mg tab.chew PO SCH (09:12)
[2022-01-26] MEDS: metoprolol tartrate 12.5mg (1/2 tablet) PO SCH ×2 (09:13→20:00)
[2022-01-26] MEDS: calcium acetate 667mg (PhosLO) capsule PO SCH ×3 (09:13→17:52)
[2022-01-26] MEDS: amLODIPine 5mg tablet PO SCH (09:13)
[2022-01-26] MEDS: atorvastatin 20mg tablet PO SCH (09:13)
[2022-01-26] MEDS: neomy sulf/bacitrac zn/polymixin b oint 14.2 gm tube TP SCH ×3 (09:14→21:40)
[2022-01-26] MEDS: pantoprazole 40MG/NS 100ML BAG 100 ML IV SCH ×2 (09:14→21:40)
[2022-01-26] MEDS ORDERED: PERFLUTREN PROTEIN-A MICROSPHR (Optison) 0.22 MG/ML 3ML VIAL IV ONE (09:15)
[2022-01-26] MEDS: HYDROcodone/acetaminophen 5mg/325mg tablet PO PRN ×2 (09:17→21:39)
[2022-01-26 11:00] VITALS: BP 117/62
[2022-01-26] MEDS: potassium Cl 20 mEq SR tablet PO PRN ×2 (14:01→17:52)
[2022-01-26] MEDS: magnesium 4gm in 100ml NS 100 ML IV PRN (14:03)
[2022-01-26 15:00] VITALS: BP 136/55
[2022-01-26 18:00] VITALS: BP 124/60
--- NOTE | 2022-01-26 18:28 | NUR ---
Problems reprioritized. Patient report given, questions answered & plan of care reviewed with MOE Joseph.
[2022-01-26 22:00] VITALS: BP 132/84
[2022-01-27 02:00] VITALS: BP 138/77
[2022-01-27 06:00] VITALS: BP 149/73
[2022-01-27 06:01] LABS: APTT 39 SECONDS (22-32)
--- NOTE | 2022-01-27 06:07 | NUR ---
Did Bladder scan after void, residum only was 1 ml, patient did not complaint of feeling bladder retention, continue to monitor S/S of urinary retention.
[2022-01-27 06:20] LABS: ALANINE AMINOTRANSFERASE 23 U/L (12-78); ALBUMIN 2.6 G/DL (3.4-5.0); ALBUMIN/GLOBULIN RATIO 0.7 (1.1-1.5); ALKALINE PHOSPHATASE 138 IU/L (46-116); ANION GAP 10 (8-16); ASPARTATE AMINO TRANSFERASE 26 U/L (10-37); BILIRUBIN,TOTAL 0.9 MG/DL (0.1-1.0); BLOOD UREA NITROGEN 46 MG/DL (7-18); BUN/CREATININE RATIO 18.3 (5.4-32.0); CALCIUM 9.2 MG/DL (8.5-10.1); CHLORIDE 99 MMOL/L (99-107); CREATININE 2.51 MG/DL (0.60-1.10); GLUCOSE 151 MG/DL (70-104); MAGNESIUM 2.2 MG/DL (1.5-2.4); POTASSIUM 4.3 MMOL/L (3.5-5.1); SODIUM 135 MMOL/L (135-145); TOTAL CARBON DIOXIDE 26.1 MMOL/L (24-32); TOTAL PROTEIN 6.2 G/DL (6.4-8.2); VANCOMYCIN,RANDOM 3.4 UG/ML; eGFR 25 ML/MIN
[2022-01-27 06:30] LABS: BASOPHILS # (AUTO) 0.1 X10'3 (0-0.2); EOSINOPHILS # (AUTO) 0.5 X10'3 (0-0.9); LYMPHOCYTES # (AUTO) 1.3 X10'3 (1.1-4.8); MONOCYTES # (AUTO) 0.9 X10'3 (0-0.9)
[2022-01-27 06:32] LABS: BASOPHILS % (AUTO) 0.6 % (0-1); EOSINOPHILS % (AUTO) 3.8 % (0-6); HEMATOCRIT 36.4 % (42.0-52.0); HEMOGLOBIN 12.3 g/dl (14.0-17.9); MEAN CORPUSCULAR HEMOGLOBIN 28.7 PG (27.0-31.0); MEAN CORPUSCULAR HGB CONC 33.7 g/dL (33.0-36.5); MEAN CORPUSCULAR VOLUME 85.1 FL (78-98); MEAN PLATELET VOLUME 7.9 FL (7.4-10.4); MONOCYTES % (AUTO) 7.1 % (2-12); NEUTROPHILS # (AUTO) 10.3 X10'3 (1.8-7.7); NEUTROPHILS % (AUTO) 78.5 % (42-75); PLATELET COUNT 327 X10'3 (140-440); RED BLOOD COUNT 4.28 X10'6 (4.70-6.10); RED CELL DISTRIBUTION WIDTH 15.2 % (11.5-14.5); WHITE BLOOD COUNT 13.1 X10'3 (4.5-11.0)
--- NOTE | 2022-01-27 06:51 | NUR ---
Problems reprioritized. Patient report given, questions answered & plan of care reviewed with AM MOE Smart.
[2022-01-27] MEDS: lactose-reduced food (Ensure Enlive) - 237ml bottle PO SCH ×2 (07:30→17:30)
[2022-01-27] MEDS: K, MAG and/or Phos replacement - Verify level? MC SCH (08:00)
[2022-01-27] MEDS: levoTHYROXINE 100mcg tablet PO SCH (08:45)
[2022-01-27] MEDS: aspirin 81mg tab.chew PO SCH (08:45)
[2022-01-27] MEDS: pantoprazole 40MG/NS 100ML BAG 100 ML IV SCH ×2 (08:45→20:03)
[2022-01-27] MEDS: calcium acetate 667mg (PhosLO) capsule PO SCH ×3 (08:45→18:10)
[2022-01-27] MEDS: atorvastatin 20mg tablet PO SCH (08:46)
[2022-01-27] MEDS: amLODIPine 5mg tablet PO SCH (08:46)
[2022-01-27] MEDS: metoprolol tartrate 12.5mg (1/2 tablet) PO SCH ×2 (08:46→20:05)
[2022-01-27] MEDS: amiodarone 200mg tablet PO SCH ×2 (08:46→20:04)
[2022-01-27] MEDS: neomy sulf/bacitrac zn/polymixin b oint 14.2 gm tube TP SCH ×3 (08:49→20:07)
[2022-01-27] MEDS: polyethylene glycol 3350 17gm powd pack PO SCH (08:49)
[2022-01-27 11:00] VITALS: BP 147/66
--- NOTE | 2022-01-27 12:14 | NUR ---
Pt to set appt with PCP in 7 days of dc. Discharge date not known at this time. Pt already on beta emerson.
[2022-01-27 15:00] VITALS: BP 109/70
[2022-01-27] MEDS: HYDROcodone/acetaminophen 5mg/325mg tablet PO PRN (17:12)
[2022-01-27 18:00] VITALS: BP 130/70
--- NOTE | 2022-01-27 18:28 | NUR ---
Problems reprioritized. Patient report given, questions answered & plan of care reviewed with MOE Joseph.
[2022-01-27] MEDS ORDERED: glucagon, human recombinant 1mg kit SUBCUT PRN (19:45)
[2022-01-27] MEDS ORDERED: MESSAGE TO PHARMACY PO ONE (19:45)
[2022-01-27] MEDS ORDERED: dextrose 50%-water 50ml dispensing syringe IV PRN ×2 (19:45)
[2022-01-27] MEDS ORDERED: DEXTROSE 15 GM of carb/4 tabs (each vial/BOTTLE has 4 tablets) PO PRN ×2 (19:45)
[2022-01-27] MEDS: insulin glargine (Lantus) pen - multi-dose SQ SCH (21:00)
[2022-01-27 22:00] VITALS: BP 133/69
[2022-01-27] MEDS ORDERED: Melatonin 3mg tablet PO ONE (23:10)
[2022-01-28 02:00] VITALS: BP 151/58
[2022-01-28 06:00] VITALS: BP 142/69
[2022-01-28] MEDS: pantoprazole 40MG/NS 100ML BAG 100 ML IV SCH ×2 (07:27→19:36)
[2022-01-28] MEDS: atorvastatin 20mg tablet PO SCH (07:27)
[2022-01-28] MEDS: calcium acetate 667mg (PhosLO) capsule PO SCH ×3 (07:27→17:57)
[2022-01-28] MEDS: polyethylene glycol 3350 17gm powd pack PO SCH (07:27)
[2022-01-28] MEDS: neomy sulf/bacitrac zn/polymixin b oint 14.2 gm tube TP SCH ×3 (07:28→21:56)
[2022-01-28] MEDS: levoTHYROXINE 100mcg tablet PO SCH (07:28)
[2022-01-28] MEDS: aspirin 81mg tab.chew PO SCH (07:28)
[2022-01-28] MEDS: amLODIPine 5mg tablet PO SCH (07:32)
[2022-01-28] MEDS: amiodarone 200mg tablet PO SCH ×2 (07:32→19:32)
[2022-01-28] MEDS: metoprolol tartrate 12.5mg (1/2 tablet) PO SCH ×2 (07:33→19:36)
[2022-01-28] MEDS: lactose-reduced food (Ensure Enlive) - 237ml bottle PO SCH ×2 (07:36→17:55)
[2022-01-28] MEDS: K, MAG and/or Phos replacement - Verify level? MC SCH (08:00)
--- NOTE | 2022-01-28 09:48 | NUR ---
Reassessment: Pt continues on SB6 diet per INSURANCE CLERK recs w/ avg intake ~65% of meals and 100% x 3 ONS, meeting est needs at this time. LBM 01/26 receiving routine miralax. No change to recommendations at this time, will continue to monitor. Recommendations: 1. Continue SB6 diet per INSURANCE CLERK recs 2. Ensure Enlive BIDBD 3. Yogurt WB, cottage cheese WL, smoothie WS 4. Encourage PO intake 5. Routine bowel care 6. Weekly scaled weights Addendum: 01/28/22 at [address] Amended: Links added.
[2022-01-28] MEDS: insulin Lispro (HumaLOG) vial - multi-dose SQ SCH ×3 (10:44→19:43)
[2022-01-28 11:00] VITALS: BP 108/59
[2022-01-28 15:00] VITALS: BP 124/67
[2022-01-28 18:00] VITALS: BP 139/67
--- NOTE | 2022-01-28 18:48 | NUR ---
Problems reprioritized. Patient report given, questions answered & plan of care reviewed with MOE Pringle.
[2022-01-28 22:00] VITALS: BP 115/60
[2022-01-28] MEDS: insulin glargine (Lantus) pen - multi-dose SQ SCH (22:01)
[2022-01-29 02:00] VITALS: BP 132/64
[2022-01-29 06:14] LABS: BASOPHILS # (AUTO) 0.1 X10'3 (0-0.2); BASOPHILS % (AUTO) 0.9 % (0-1); EOSINOPHILS # (AUTO) 0.6 X10'3 (0-0.9); EOSINOPHILS % (AUTO) 6.1 % (0-6); HEMATOCRIT 35.7 % (42.0-52.0); HEMOGLOBIN 11.8 g/dl (14.0-17.9); LYMPHOCYTES # (AUTO) 1.1 X10'3 (1.1-4.8); LYMPHOCYTES % (AUTO) 11.5 % (21-51); MEAN CORPUSCULAR HEMOGLOBIN 28.3 PG (27.0-31.0); MEAN CORPUSCULAR HGB CONC 33.2 g/dL (33.0-36.5); MEAN CORPUSCULAR VOLUME 85.3 FL (78-98); MEAN PLATELET VOLUME 8.1 FL (7.4-10.4); MONOCYTES # (AUTO) 1.1 X10'3 (0-0.9); MONOCYTES % (AUTO) 11.5 % (2-12); NEUTROPHILS # (AUTO) 6.6 X10'3 (1.8-7.7); PLATELET COUNT 296 X10'3 (140-440); RED BLOOD COUNT 4.19 X10'6 (4.70-6.10); RED CELL DISTRIBUTION WIDTH 15.1 % (11.5-14.5); WHITE BLOOD COUNT 9.4 X10'3 (4.5-11.0)
--- NOTE | 2022-01-29 06:20 | NUR ---
Patient in room PCU 3028. I have received report from Maribel ROSA and had the opportunity to ask questions and assume patient care.
[2022-01-29 06:40] LABS: ALBUMIN 2.7 G/DL (3.4-5.0); ANION GAP 11 (8-16); BLOOD UREA NITROGEN 46 MG/DL (7-18); BUN/CREATININE RATIO 17.8 (5.4-32.0); CALCIUM 9.3 MG/DL (8.5-10.1); CHLORIDE 97 MMOL/L (99-107); CREATININE 2.59 MG/DL (0.60-1.10); GLUCOSE 143 MG/DL (70-104); MAGNESIUM 2.1 MG/DL (1.5-2.4); PHOSPHORUS 3.2 MG/DL (2.3-4.5); POTASSIUM 4.2 MMOL/L (3.5-5.1); SODIUM 135 MMOL/L (135-145); TOTAL CARBON DIOXIDE 27.4 MMOL/L (24-32); eGFR 24 ML/MIN
[2022-01-29 07:10] VITALS: BP 126/68
[2022-01-29] MEDS: lactose-reduced food (Ensure Enlive) - 237ml bottle PO SCH ×2 (07:30→19:25)
[2022-01-29] MEDS: pantoprazole 40MG/NS 100ML BAG 100 ML IV SCH ×2 (08:16→20:31)
[2022-01-29] MEDS: neomy sulf/bacitrac zn/polymixin b oint 14.2 gm tube TP SCH ×3 (08:16→21:34)
[2022-01-29] MEDS: calcium acetate 667mg (PhosLO) capsule PO SCH ×3 (08:17→19:24)
[2022-01-29] MEDS: amiodarone 200mg tablet PO SCH ×2 (08:18→19:25)
[2022-01-29] MEDS: levoTHYROXINE 100mcg tablet PO SCH (08:18)
[2022-01-29] MEDS: atorvastatin 20mg tablet PO SCH (08:19)
[2022-01-29] MEDS: amLODIPine 5mg tablet PO SCH (08:20)
[2022-01-29] MEDS: aspirin 81mg tab.chew PO SCH (08:22)
[2022-01-29] MEDS: polyethylene glycol 3350 17gm powd pack PO SCH (08:22)
[2022-01-29] MEDS: metoprolol tartrate 12.5mg (1/2 tablet) PO SCH ×2 (08:22→19:26)
[2022-01-29] MEDS: insulin Lispro (HumaLOG) vial - multi-dose SQ SCH ×2 (08:28→13:36)
[2022-01-29 12:45] VITALS: BP 131/56
[2022-01-29 16:13] VITALS: BP 128/68
[2022-01-29 18:00] VITALS: BP 127/62
--- NOTE | 2022-01-29 18:28 | NUR ---
Problems reprioritized. Patient report given, questions answered & plan of care reviewed with Kalani NERI patient stable at transfer of care.
--- NOTE | 2022-01-29 18:30 | NUR ---
Patient in room PCU 3028. I have received report from Riri ROSA and had the opportunity to ask questions and assume patient care.
[2022-01-29] MEDS: K, MAG and/or Phos replacement - Verify level? MC SCH (19:20)
--- NOTE | 2022-01-29 20:20 | NUR ---
Agree with Susan LEVIN physical assessment.
[2022-01-29] MEDS: insulin glargine (Lantus) pen - multi-dose SQ SCH (21:33)
[2022-01-29 22:00] VITALS: BP 138/69
[2022-01-30 02:00] VITALS: BP 121/66
--- NOTE | 2022-01-30 06:15 | NUR ---
Problems reprioritized. Patient report given, questions answered & plan of care reviewed with Riri ROSA.
[2022-01-30 06:37] LABS: BASOPHILS # (AUTO) 0.1 X10'3 (0-0.2); EOSINOPHILS # (AUTO) 0.6 X10'3 (0-0.9); EOSINOPHILS % (AUTO) 7.2 % (0-6); HEMATOCRIT 35.2 % (42.0-52.0); HEMOGLOBIN 11.6 g/dl (14.0-17.9); LYMPHOCYTES # (AUTO) 1.5 X10'3 (1.1-4.8); LYMPHOCYTES % (AUTO) 17.4 % (21-51); MEAN CORPUSCULAR HEMOGLOBIN 28.1 PG (27.0-31.0); MEAN CORPUSCULAR HGB CONC 33.1 g/dL (33.0-36.5); MEAN CORPUSCULAR VOLUME 84.9 FL (78-98); MEAN PLATELET VOLUME 8.1 FL (7.4-10.4); MONOCYTES # (AUTO) 1.2 X10'3 (0-0.9); MONOCYTES % (AUTO) 13.2 % (2-12); NEUTROPHILS # (AUTO) 5.4 X10'3 (1.8-7.7); NEUTROPHILS % (AUTO) 61.2 % (42-75); PLATELET COUNT 287 X10'3 (140-440); RED BLOOD COUNT 4.14 X10'6 (4.70-6.10); RED CELL DISTRIBUTION WIDTH 14.8 % (11.5-14.5); WHITE BLOOD COUNT 8.8 X10'3 (4.5-11.0)
[2022-01-30 07:12] LABS: ALBUMIN 2.8 G/DL (3.4-5.0); ANION GAP 9 (8-16); BLOOD UREA NITROGEN 48 MG/DL (7-18); BUN/CREATININE RATIO 18.3 (5.4-32.0); CALCIUM 9.3 MG/DL (8.5-10.1); CHLORIDE 97 MMOL/L (99-107); CREATININE 2.63 MG/DL (0.60-1.10); GLUCOSE 154 MG/DL (70-104); MAGNESIUM 2.1 MG/DL (1.5-2.4); PHOSPHORUS 3.7 MG/DL (2.3-4.5); POTASSIUM 4.3 MMOL/L (3.5-5.1); SODIUM 133 MMOL/L (135-145); TOTAL CARBON DIOXIDE 26.7 MMOL/L (24-32); eGFR 24 ML/MIN
[2022-01-30] MEDS: lactose-reduced food (Ensure Enlive) - 237ml bottle PO SCH ×2 (07:30→17:30)
[2022-01-30] MEDS: K, MAG and/or Phos replacement - Verify level? MC SCH (08:00)
[2022-01-30] MEDS: pantoprazole 40MG/NS 100ML BAG 100 ML IV SCH ×2 (09:28→21:19)
[2022-01-30] MEDS: polyethylene glycol 3350 17gm powd pack PO SCH (09:29)
[2022-01-30] MEDS: amiodarone 200mg tablet PO SCH ×2 (09:29→20:18)
[2022-01-30] MEDS: calcium acetate 667mg (PhosLO) capsule PO SCH ×3 (09:29→19:00)
[2022-01-30] MEDS: atorvastatin 20mg tablet PO SCH (09:30)
[2022-01-30] MEDS: metoprolol tartrate 12.5mg (1/2 tablet) PO SCH ×2 (09:30→20:00)
[2022-01-30] MEDS: amLODIPine 5mg tablet PO SCH (09:30)
[2022-01-30] MEDS: levoTHYROXINE 100mcg tablet PO SCH (09:30)
[2022-01-30] MEDS: aspirin 81mg tab.chew PO SCH (09:30)
[2022-01-30] MEDS: neomy sulf/bacitrac zn/polymixin b oint 14.2 gm tube TP SCH ×3 (09:47→20:25)
[2022-01-30] MEDS: insulin Lispro (HumaLOG) vial - multi-dose SQ SCH ×2 (13:01→19:03)
[2022-01-30 16:00] VITALS: BP 138/65
[2022-01-30 18:00] VITALS: BP 145/69
--- NOTE | 2022-01-30 18:30 | NUR ---
Patient in room PCU 3028. I have received report from Riri ROSA and had the opportunity to ask questions and assume patient care.
--- NOTE | 2022-01-30 18:49 | NUR ---
Problems reprioritized. Patient report given, questions answered & plan of care reviewed with Jane ROSA, patient stable at transfer of care.
--- NOTE | 2022-01-30 19:00 | NUR ---
Pt did not get his PhosLo medicine at 1800 was omitted by the day RN. Did not see the med due until his night time medications were given.
--- NOTE | 2022-01-30 20:15 | NUR ---
PT'S PHOSLO WAS NOT GIVEN SINCE IT WAS DUE ON DAY SHIFT AT 1800 AND THE MEDICINE WAS NOT GIVEN AT MEAL TIME, MED WAS DISCOVERED THAT IT WAS NOT GIVEN AT 2014 BY ME THE NIGHT NURSE.
[2022-01-30] MEDS: HYDROcodone/acetaminophen 5mg/325mg tablet PO PRN (21:21)
[2022-01-30 22:00] VITALS: BP 124/52
[2022-01-30] MEDS: insulin glargine (Lantus) pen - multi-dose SQ SCH (22:21)
[2022-01-31 02:00] VITALS: BP 139/64
--- NOTE | 2022-01-31 06:06 | NUR ---
Student Medication Administration: For this medication-pass time frame, all medication were reviewed, dispensed, administered and documented per hospital policy by Elias Potter.
--- NOTE | 2022-01-31 06:06 | NUR ---
Student documentation: I have reviewed and agree with all interventions, assessments performed and documented by Elias Potter.
[2022-01-31 06:27] LABS: BASOPHILS # (AUTO) 0.1 X10'3 (0-0.2); BASOPHILS % (AUTO) 0.8 % (0-1); EOSINOPHILS # (AUTO) 0.6 X10'3 (0-0.9); EOSINOPHILS % (AUTO) 8.1 % (0-6); HEMATOCRIT 33.2 % (42.0-52.0); HEMOGLOBIN 11.5 g/dl (14.0-17.9); LYMPHOCYTES # (AUTO) 1.5 X10'3 (1.1-4.8); LYMPHOCYTES % (AUTO) 19.3 % (21-51); MEAN CORPUSCULAR HEMOGLOBIN 29.2 PG (27.0-31.0); MEAN CORPUSCULAR HGB CONC 34.7 g/dL (33.0-36.5); MEAN CORPUSCULAR VOLUME 84.1 FL (78-98); MEAN PLATELET VOLUME 8.2 FL (7.4-10.4); MONOCYTES # (AUTO) 0.8 X10'3 (0-0.9); MONOCYTES % (AUTO) 9.9 % (2-12); NEUTROPHILS # (AUTO) 4.9 X10'3 (1.8-7.7); NEUTROPHILS % (AUTO) 61.9 % (42-75); PLATELET COUNT 308 X10'3 (140-440); RED BLOOD COUNT 3.94 X10'6 (4.70-6.10)
[2022-01-31 06:42] LABS: ALBUMIN 2.8 G/DL (3.4-5.0); ANION GAP 7 (8-16); BLOOD UREA NITROGEN 53 MG/DL (7-18); BUN/CREATININE RATIO 18.9 (5.4-32.0); CALCIUM 9.2 MG/DL (8.5-10.1); CHLORIDE 98 MMOL/L (99-107); GLUCOSE 119 MG/DL (70-104); PHOSPHORUS 3.8 MG/DL (2.3-4.5); POTASSIUM 4.3 MMOL/L (3.5-5.1); SODIUM 134 MMOL/L (135-145); TOTAL CARBON DIOXIDE 28.6 MMOL/L (24-32); TRIGLYCERIDES 125 MG/DL (20-135); eGFR 22 ML/MIN
--- NOTE | 2022-01-31 06:47 | NUR ---
Problems reprioritized. Patient report given, questions answered & plan of care reviewed with Arnel ROSA.
[2022-01-31 06:59] VITALS: BP 137/141
[2022-01-31] MEDS: pantoprazole 40MG/NS 100ML BAG 100 ML IV SCH ×2 (07:44→20:36)
[2022-01-31] MEDS: polyethylene glycol 3350 17gm powd pack PO SCH (07:45)
[2022-01-31] MEDS: metoprolol tartrate 12.5mg (1/2 tablet) PO SCH ×2 (07:45→20:00)
[2022-01-31] MEDS: aspirin 81mg tab.chew PO SCH (07:45)
[2022-01-31] MEDS: atorvastatin 20mg tablet PO SCH (07:45)
[2022-01-31] MEDS: amLODIPine 5mg tablet PO SCH (07:45)
[2022-01-31] MEDS: calcium acetate 667mg (PhosLO) capsule PO SCH ×3 (07:45→17:39)
[2022-01-31] MEDS: K, MAG and/or Phos replacement - Verify level? MC SCH (07:46)
[2022-01-31] MEDS: amiodarone 200mg tablet PO SCH ×2 (07:46→20:36)
[2022-01-31] MEDS: levoTHYROXINE 100mcg tablet PO SCH (07:46)
[2022-01-31] MEDS: lactose-reduced food (Ensure Enlive) - 237ml bottle PO SCH ×2 (07:46→17:30)
[2022-01-31] MEDS: neomy sulf/bacitrac zn/polymixin b oint 14.2 gm tube TP SCH ×3 (07:47→22:22)
[2022-01-31 11:00] VITALS: BP 140/64
[2022-01-31] MEDS: insulin Lispro (HumaLOG) vial - multi-dose SQ SCH ×2 (13:30→20:59)
[2022-01-31 15:00] VITALS: BP 132/70
[2022-01-31 18:00] VITALS: BP 156/67
[2022-01-31] MEDS: insulin glargine (Lantus) pen - multi-dose SQ SCH (20:58)
[2022-01-31 22:00] VITALS: BP 130/54
[2022-01-31] MEDS: HYDROcodone/acetaminophen 5mg/325mg tablet PO PRN (23:48)
[2022-02-01 03:00] VITALS: BP 136/65
[2022-02-01 06:00] VITALS: BP 130/51
--- NOTE | 2022-02-01 06:43 | NUR ---
Patient in room U 3028. I have received report from MORALES ROSA and had the opportunity to ask questions and assume patient care. Bedside report completed. Pt sleeping, No distress, Call light in reach. Addendum: 02/01/22 at 0644 by Osiris Woodard RN Amended: Links added.
[2022-02-01 07:03] LABS: BASOPHILS # (AUTO) 0.1 X10'3 (0-0.2); BASOPHILS % (AUTO) 1.2 % (0-1); EOSINOPHILS # (AUTO) 0.7 X10'3 (0-0.9); EOSINOPHILS % (AUTO) 10.4 % (0-6); HEMATOCRIT 35.1 % (42.0-52.0); HEMOGLOBIN 11.9 g/dl (14.0-17.9); LYMPHOCYTES # (AUTO) 1.3 X10'3 (1.1-4.8); LYMPHOCYTES % (AUTO) 19.3 % (21-51); MEAN CORPUSCULAR HEMOGLOBIN 28.5 PG (27.0-31.0); MEAN CORPUSCULAR HGB CONC 33.8 g/dL (33.0-36.5); MEAN CORPUSCULAR VOLUME 84.3 FL (78-98); MONOCYTES # (AUTO) 0.7 X10'3 (0-0.9); MONOCYTES % (AUTO) 10.4 % (2-12); NEUTROPHILS # (AUTO) 4.1 X10'3 (1.8-7.7); NEUTROPHILS % (AUTO) 58.7 % (42-75); PLATELET COUNT 285 X10'3 (140-440); RED BLOOD COUNT 4.16 X10'6 (4.70-6.10); RED CELL DISTRIBUTION WIDTH 15.1 % (11.5-14.5)
[2022-02-01 07:17] LABS: ANION GAP 9 (8-16); BLOOD UREA NITROGEN 56 MG/DL (7-18); BUN/CREATININE RATIO 19.2 (5.4-32.0); CALCIUM 9.4 MG/DL (8.5-10.1); CHLORIDE 99 MMOL/L (99-107); CREATININE 2.91 MG/DL (0.60-1.10); GLUCOSE 123 MG/DL (70-104); PHOSPHORUS 4.2 MG/DL (2.3-4.5); POTASSIUM 4.2 MMOL/L (3.5-5.1); SODIUM 137 MMOL/L (135-145); eGFR 21 ML/MIN
[2022-02-01] MEDS: lactose-reduced food (Ensure Enlive) - 237ml bottle PO SCH ×2 (07:30→17:44)
[2022-02-01] MEDS: aspirin 81mg tab.chew PO SCH (07:36)
[2022-02-01] MEDS: levoTHYROXINE 100mcg tablet PO SCH (07:38)
[2022-02-01] MEDS: amiodarone 200mg tablet PO SCH ×2 (07:38→21:24)
[2022-02-01] MEDS: amLODIPine 5mg tablet PO SCH (07:39)
[2022-02-01] MEDS: atorvastatin 20mg tablet PO SCH (07:39)
[2022-02-01] MEDS: metoprolol tartrate 12.5mg (1/2 tablet) PO SCH ×2 (07:40→20:00)
[2022-02-01] MEDS: calcium acetate 667mg (PhosLO) capsule PO SCH ×3 (07:40→17:18)
[2022-02-01] MEDS: pantoprazole 40MG/NS 100ML BAG 100 ML IV SCH ×2 (07:41→21:30)
[2022-02-01] MEDS: neomy sulf/bacitrac zn/polymixin b oint 14.2 gm tube TP SCH ×3 (07:41→21:28)
[2022-02-01] MEDS: polyethylene glycol 3350 17gm powd pack PO SCH (07:42)
[2022-02-01] MEDS: K, MAG and/or Phos replacement - Verify level? MC SCH (08:00)
[2022-02-01] MEDS: insulin Lispro (HumaLOG) vial - multi-dose SQ SCH (09:00)
[2022-02-01 11:00] VITALS: BP 118/64
[2022-02-01 15:31] VITALS: BP 127/77
[2022-02-01 18:00] VITALS: BP 137/62
--- NOTE | 2022-02-01 18:00 | NUR ---
Patient in room PCU 3028. I have received report from Osiris ROSA and had the opportunity to ask questions and assume patient care.
--- NOTE | 2022-02-01 18:09 | NUR ---
Problems reprioritized. Patient report given, questions answered & plan of care reviewed with Jazmine ROSA. Bedside report completed. Pt remains up in chair, eating dinner. Addendum: 02/01/22 at 1813 by Osiris Woodard RN Amended: Links added.
[2022-02-01 22:00] VITALS: BP 159/65
[2022-02-01] MEDS: insulin glargine (Lantus) pen - multi-dose SQ SCH (22:02)
[2022-02-01] MEDS: HYDROcodone/acetaminophen 5mg/325mg tablet PO PRN (22:08)
[2022-02-02 02:00] VITALS: BP 128/65
[2022-02-02 06:35] LABS: BASOPHILS # (AUTO) 0.1 X10'3 (0-0.2); EOSINOPHILS # (AUTO) 0.8 X10'3 (0-0.9); EOSINOPHILS % (AUTO) 10.3 % (0-6); HEMOGLOBIN 11.5 g/dl (14.0-17.9); LYMPHOCYTES # (AUTO) 1.6 X10'3 (1.1-4.8); MEAN CORPUSCULAR HEMOGLOBIN 28.8 PG (27.0-31.0); MONOCYTES # (AUTO) 0.7 X10'3 (0-0.9)
[2022-02-02 06:38] LABS: BASOPHILS % (AUTO) 1.3 % (0-1); HEMATOCRIT 33.3 % (42.0-52.0); LYMPHOCYTES % (AUTO) 21.4 % (21-51); MEAN CORPUSCULAR HGB CONC 34.6 g/dL (33.0-36.5); MEAN CORPUSCULAR VOLUME 83.2 FL (78-98); MEAN PLATELET VOLUME 8.2 FL (7.4-10.4); MONOCYTES % (AUTO) 8.6 % (2-12); NEUTROPHILS # (AUTO) 4.5 X10'3 (1.8-7.7); NEUTROPHILS % (AUTO) 58.4 % (42-75); PLATELET COUNT 273 X10'3 (140-440); WHITE BLOOD COUNT 7.7 X10'3 (4.5-11.0)
--- NOTE | 2022-02-02 06:41 | NUR ---
Problems reprioritized. Patient report given, questions answered & plan of care reviewed with Keri ROSA.
[2022-02-02 07:00] VITALS: BP 125/52
[2022-02-02] MEDS: polyethylene glycol 3350 17gm powd pack PO SCH (07:58)
[2022-02-02] MEDS: aspirin 81mg tab.chew PO SCH (07:58)
[2022-02-02] MEDS: amiodarone 200mg tablet PO SCH ×2 (07:59→21:21)
[2022-02-02] MEDS: calcium acetate 667mg (PhosLO) capsule PO SCH ×3 (07:59→17:35)
[2022-02-02] MEDS: K, MAG and/or Phos replacement - Verify level? MC SCH (08:00)
[2022-02-02] MEDS: atorvastatin 20mg tablet PO SCH (08:00)
[2022-02-02] MEDS: amLODIPine 5mg tablet PO SCH (08:00)
[2022-02-02] MEDS: metoprolol tartrate 12.5mg (1/2 tablet) PO SCH ×2 (08:01→21:22)
[2022-02-02] MEDS: levoTHYROXINE 100mcg tablet PO SCH (08:01)
[2022-02-02] MEDS: neomy sulf/bacitrac zn/polymixin b oint 14.2 gm tube TP SCH ×3 (08:01→21:22)
[2022-02-02] MEDS: lactose-reduced food (Ensure Enlive) - 237ml bottle PO SCH ×2 (08:06→17:37)
[2022-02-02] MEDS: pantoprazole 40MG/NS 100ML BAG 100 ML IV SCH ×2 (08:13→21:33)
[2022-02-02 08:31] LABS: ALBUMIN 3.2 G/DL (3.4-5.0); ANION GAP 6 (8-16); BLOOD UREA NITROGEN 54 MG/DL (7-18); BUN/CREATININE RATIO 18.3 (5.4-32.0); CALCIUM 9.3 MG/DL (8.5-10.1); CHLORIDE 99 MMOL/L (99-107); CREATININE 2.95 MG/DL (0.60-1.10); GLUCOSE 145 MG/DL (70-104); MAGNESIUM 1.9 MG/DL (1.5-2.4); PHOSPHORUS 3.8 MG/DL (2.3-4.5); POTASSIUM 4.5 MMOL/L (3.5-5.1); SODIUM 135 MMOL/L (135-145); TOTAL CARBON DIOXIDE 29.6 MMOL/L (24-32); eGFR 21 ML/MIN
[2022-02-02 11:00] VITALS: BP 123/62
[2022-02-02] MEDS: insulin Lispro (HumaLOG) vial - multi-dose SQ SCH ×2 (14:15→21:32)
[2022-02-02 15:00] VITALS: BP 131/62
[2022-02-02] MEDS: HYDROcodone/acetaminophen 5mg/325mg tablet PO PRN ×2 (17:36→23:41)
[2022-02-02 18:00] VITALS: BP 126/60
--- NOTE | 2022-02-02 18:00 | NUR ---
Patient in room PCU 3028. I have received report from Keri ROSA and had the opportunity to ask questions and assume patient care.
--- NOTE | 2022-02-02 18:59 | NUR ---
Student documentation: I have reviewed and agree with all interventions, assessments performed and documented by Shiloh.
[2022-02-02 22:00] VITALS: BP 116/60
[2022-02-02] MEDS: normal saline 1000ml 1,000 ML IV SCH (23:37)
[2022-02-02] MEDS: insulin glargine (Lantus) pen - multi-dose SQ SCH (23:41)
[2022-02-03] VITALS (11 sets, daily range): BP systolic 113–183; BP diastolic 51–85
[2022-02-03] MEDS: normal saline 1000ml 1,000 ML IV SCH ×2 (04:25→14:25)
--- NOTE | 2022-02-03 06:00 | NUR ---
Patient in room PCU 3028. I have received report from MOE CRUZ and had the opportunity to ask questions and assume patient care.
[2022-02-03 06:08] LABS: BASOPHILS # (AUTO) 0.1 X10'3 (0-0.2); BASOPHILS % (AUTO) 1.4 % (0-1); EOSINOPHILS # (AUTO) 0.7 X10'3 (0-0.9); EOSINOPHILS % (AUTO) 9.7 % (0-6); HEMATOCRIT 32.5 % (42.0-52.0); HEMOGLOBIN 10.8 g/dl (14.0-17.9); LYMPHOCYTES # (AUTO) 1.1 X10'3 (1.1-4.8); LYMPHOCYTES % (AUTO) 16.7 % (21-51); MEAN CORPUSCULAR HEMOGLOBIN 28.4 PG (27.0-31.0); MEAN CORPUSCULAR HGB CONC 33.4 g/dL (33.0-36.5); MEAN PLATELET VOLUME 8.4 FL (7.4-10.4); MONOCYTES # (AUTO) 0.6 X10'3 (0-0.9); MONOCYTES % (AUTO) 9.3 % (2-12); NEUTROPHILS # (AUTO) 4.3 X10'3 (1.8-7.7); NEUTROPHILS % (AUTO) 62.9 % (42-75); PLATELET COUNT 267 X10'3 (140-440); RED BLOOD COUNT 3.82 X10'6 (4.70-6.10); RED CELL DISTRIBUTION WIDTH 15.5 % (11.5-14.5); WHITE BLOOD COUNT 6.9 X10'3 (4.5-11.0)
[2022-02-03 06:14] LABS: ALBUMIN 2.8 G/DL (3.4-5.0); ANION GAP 9 (8-16); BLOOD UREA NITROGEN 56 MG/DL (7-18); BUN/CREATININE RATIO 20.1 (5.4-32.0); CHLORIDE 101 MMOL/L (99-107); CREATININE 2.78 MG/DL (0.60-1.10); GLUCOSE 100 MG/DL (70-104); MAGNESIUM 1.9 MG/DL (1.5-2.4); PHOSPHORUS 3.8 MG/DL (2.3-4.5); POTASSIUM 4.1 MMOL/L (3.5-5.1); SODIUM 137 MMOL/L (135-145); TOTAL CARBON DIOXIDE 27.3 MMOL/L (24-32); eGFR 22 ML/MIN
--- NOTE | 2022-02-03 07:22 | NUR ---
Problems reprioritized. Patient report given, questions answered & plan of care reviewed with Keri ROSA.
[2022-02-03] MEDS: lactose-reduced food (Ensure Enlive) - 237ml bottle PO SCH ×2 (07:30→17:30)
[2022-02-03] MEDS: metoprolol tartrate 12.5mg (1/2 tablet) PO SCH ×2 (08:00→22:55)
[2022-02-03] MEDS: K, MAG and/or Phos replacement - Verify level? MC SCH (08:00)
[2022-02-03] MEDS: pantoprazole 40MG/NS 100ML BAG 100 ML IV SCH ×2 (08:46→22:55)
[2022-02-03] MEDS: amLODIPine 5mg tablet PO SCH (08:53)
[2022-02-03] MEDS: amiodarone 200mg tablet PO SCH ×2 (08:53→22:56)
[2022-02-03] MEDS: atorvastatin 20mg tablet PO SCH (08:53)
[2022-02-03] MEDS: aspirin 81mg tab.chew PO SCH (08:53)
[2022-02-03] MEDS: polyethylene glycol 3350 17gm powd pack PO SCH (08:54)
[2022-02-03] MEDS: neomy sulf/bacitrac zn/polymixin b oint 14.2 gm tube TP SCH ×3 (08:54→21:00)
[2022-02-03] MEDS: calcium acetate 667mg (PhosLO) capsule PO SCH ×3 (08:54→17:58)
[2022-02-03] MEDS: levoTHYROXINE 100mcg tablet PO SCH (09:15)
--- NOTE | 2022-02-03 09:31 | NUR ---
Reassessment: Pt advanced to Regular diet per DATA COLLECTION TECHNICIAN recs w/ avg intake ~60% of meals and mostly 100% ONS, meeting est needs at this time. LBM 01/31 receiving routine miralax. No change to recommendations at this time, will continue to monitor. Recommendations: 1. Continue Regular diet per DATA COLLECTION TECHNICIAN recs 2. Ensure Enlive BIDBD 3. Yogurt WB, cottage cheese WL, smoothie WS 4. Encourage PO intake 5. Routine bowel care 6. Weekly scaled weights Addendum: 02/03/22 at [address] Amended: Links added.
--- NOTE | 2022-02-03 10:00 | NUR ---
ACCUCHECK NOT DOMNE BECAUSE PT WENT OT CATHLAB
--- NOTE | 2022-02-03 11:00 | NUR ---
After receiving 0700 TF, pt appeared to have aspirated. Pt was sitting up at the appropriate angle during bolus and there was 0 gastric residual before bolus & after. Pt c/o of feeling full, stomach is a little distended but he wanted to get the rest of his meal. Pts rr increased from 20 to 26/28 and he started coughing. RT was called, multiple endotracheal suctioning as well as deep suctioning was performed and RT increased trach mist from 8L/50% to 70% then 10L/100% over 30 min span as pt would recover then start coughing again. Dr was paged and CXR was performed. All vitals are stable and pt is resting now. Addendum: 02/03/22 at 1104 by Keri Painting RN Wrong patient - disregard note.
--- NOTE | 2022-02-03 12:35 | NUR ---
pt refused 1200 blood sugar
[2022-02-03] MEDS: HYDROcodone/acetaminophen 5mg/325mg tablet PO PRN (14:00)
--- NOTE | 2022-02-03 18:00 | NUR ---
Patient in room PCU 3028. I have received report from Keri ROSA and had the opportunity to ask questions and assume patient care.
--- NOTE | 2022-02-03 19:23 | NUR ---
Student documentation: I have reviewed and agree with all interventions, assessments performed and documented by Shiloh.
[2022-02-03] MEDS ORDERED: iohexol 350MG/ML 100ml bottle IV ONE ×2 (19:35→20:31)
[2022-02-03] MEDS ORDERED: fentaNYL/PF 50MCG/1 ML 2ML syringe ONE (19:35)
[2022-02-03] MEDS ORDERED: LIDOcaine 1% 30ml preserv. free vial ONE (19:35)
[2022-02-03] MEDS ORDERED: midazolam 1 mg/ML 2ml injection ONE (19:37)
[2022-02-03] MEDS ORDERED: nitroGLYCERIN-Tridil 50MG/D5W 250 ML IV ONE (19:40)
[2022-02-03] MEDS ORDERED: verapamil 2.5 mg/ml inj IV ONE (19:40)
[2022-02-03] MEDS ORDERED: heparin 1,000unit/ml 10ml vial 10 ML ONE ×2 (19:40→20:08)
[2022-02-03] MEDS ORDERED: ticagrelor 90mg tablet ONE (20:08)
[2022-02-03] MEDS ORDERED: aspirin 325mg tablet ONE (20:08)
[2022-02-03] MEDS ORDERED: HYDROcodone/acetaminophen 10/325mg tab PO PRN (21:50)
[2022-02-03] MEDS ORDERED: HYDROcodone/acetaminophen 5mg/325mg tablet PO PRN (21:50)
[2022-02-04] VITALS (7 sets, daily range): BP systolic 122–161; BP diastolic 62–78
[2022-02-04 06:40] LABS: BASOPHILS # (AUTO) 0.1 X10'3 (0-0.2); BASOPHILS % (AUTO) 1.1 % (0-1); EOSINOPHILS # (AUTO) 0.4 X10'3 (0-0.9); EOSINOPHILS % (AUTO) 6.2 % (0-6); HEMATOCRIT 34.1 % (42.0-52.0); HEMOGLOBIN 11.6 g/dl (14.0-17.9); LYMPHOCYTES # (AUTO) 0.8 X10'3 (1.1-4.8); LYMPHOCYTES % (AUTO) 12.4 % (21-51); MEAN CORPUSCULAR HEMOGLOBIN 28.8 PG (27.0-31.0); MEAN CORPUSCULAR HGB CONC 34.1 g/dL (33.0-36.5); MEAN CORPUSCULAR VOLUME 84.3 FL (78-98); MEAN PLATELET VOLUME 7.8 FL (7.4-10.4); MONOCYTES # (AUTO) 0.6 X10'3 (0-0.9); MONOCYTES % (AUTO) 8.7 % (2-12); NEUTROPHILS # (AUTO) 4.8 X10'3 (1.8-7.7); NEUTROPHILS % (AUTO) 71.6 % (42-75); PLATELET COUNT 194 X10'3 (140-440); RED BLOOD COUNT 4.05 X10'6 (4.70-6.10); WHITE BLOOD COUNT 6.7 X10'3 (4.5-11.0)
[2022-02-04 07:03] LABS: ALBUMIN 3.1 G/DL (3.4-5.0); ANION GAP 11 (8-16); BLOOD UREA NITROGEN 47 MG/DL (7-18); BUN/CREATININE RATIO 18.5 (5.4-32.0); CALCIUM 9.1 MG/DL (8.5-10.1); CHLORIDE 101 MMOL/L (99-107); CREATININE 2.54 MG/DL (0.60-1.10); GLUCOSE 153 MG/DL (70-104); MAGNESIUM 1.9 MG/DL (1.5-2.4); PHOSPHORUS 3.5 MG/DL (2.3-4.5); POTASSIUM 4.3 MMOL/L (3.5-5.1); SODIUM 137 MMOL/L (135-145); TOTAL CARBON DIOXIDE 25.2 MMOL/L (24-32); eGFR 25 ML/MIN
[2022-02-04] MEDS: pantoprazole 40MG/NS 100ML BAG 100 ML IV SCH ×2 (07:54→19:45)
--- NOTE | 2022-02-04 07:59 | NUR ---
Problems reprioritized. Patient report given, questions answered & plan of care reviewed with JOSE ROSA.
[2022-02-04] MEDS: K, MAG and/or Phos replacement - Verify level? MC SCH (08:00)
[2022-02-04] MEDS ORDERED: aspirin 81mg, enteric-coated 1 TAB TABLET.DR PO SCH (08:00)
[2022-02-04] MEDS: polyethylene glycol 3350 17gm powd pack PO SCH (08:00)
[2022-02-04] MEDS: metoprolol tartrate 12.5mg (1/2 tablet) PO SCH ×2 (08:00→20:43)
[2022-02-04] MEDS: amiodarone 200mg tablet PO SCH ×2 (08:01→20:43)
[2022-02-04] MEDS: aspirin 81mg tab.chew PO SCH (08:01)
[2022-02-04] MEDS: ticagrelor 90mg tablet PO SCH ×2 (08:01→20:42)
[2022-02-04] MEDS: calcium acetate 667mg (PhosLO) capsule PO SCH ×3 (08:02→18:18)
[2022-02-04] MEDS: amLODIPine 5mg tablet PO SCH (08:02)
[2022-02-04] MEDS: levoTHYROXINE 100mcg tablet PO SCH (08:02)
[2022-02-04] MEDS: atorvastatin 20mg tablet PO SCH (08:02)
[2022-02-04] MEDS: neomy sulf/bacitrac zn/polymixin b oint 14.2 gm tube TP SCH ×3 (08:03→21:25)
[2022-02-04] MEDS: lactose-reduced food (Ensure Enlive) - 237ml bottle PO SCH ×2 (08:09→17:47)
--- NOTE | 2022-02-04 08:36 | NUR ---
Problems reprioritized. Patient report given, questions answered & plan of care reviewed with Keri ROSA.
[2022-02-04] MEDS: normal saline 1000ml 1,000 ML IV SCH (09:30)
[2022-02-04] MEDS: insulin Lispro (HumaLOG) vial - multi-dose SQ SCH (09:40)
--- NOTE | 2022-02-04 11:36 | NUR ---
Pt adamantly refusing PT though repeated education.
--- NOTE | 2022-02-04 18:30 | NUR ---
Patient in room PCU 3028. I have received report from sarah and had the opportunity to ask questions and assume patient care.
[2022-02-04] MEDS: insulin glargine (Lantus) pen - multi-dose SQ SCH ×2 (20:47→21:00)
[2022-02-05 02:00] VITALS: BP 169/81
[2022-02-05 06:00] VITALS: BP 173/84
--- NOTE | 2022-02-05 06:46 | NUR ---
Problems reprioritized. Patient report given, questions answered & plan of care reviewed with josé miguel.
--- NOTE | 2022-02-05 07:08 | NUR ---
Patient in room PCU 3028. I have received report from MOE Costa and had the opportunity to ask questions and assume patient care.
[2022-02-05] MEDS: lactose-reduced food (Ensure Enlive) - 237ml bottle PO SCH (07:30)
[2022-02-05] MEDS: K, MAG and/or Phos replacement - Verify level? MC SCH (08:00)
[2022-02-05] MEDS: polyethylene glycol 3350 17gm powd pack PO SCH (09:31)
[2022-02-05] MEDS: calcium acetate 667mg (PhosLO) capsule PO SCH ×2 (09:32→13:41)
[2022-02-05] MEDS: pantoprazole 40MG/NS 100ML BAG 100 ML IV SCH (09:32)
[2022-02-05] MEDS: amiodarone 200mg tablet PO SCH (09:33)
[2022-02-05] MEDS: levoTHYROXINE 100mcg tablet PO SCH (09:34)
[2022-02-05] MEDS: ticagrelor 90mg tablet PO SCH (09:35)
[2022-02-05] MEDS: aspirin 81mg tab.chew PO SCH (09:37)
[2022-02-05] MEDS: atorvastatin 20mg tablet PO SCH (09:38)
[2022-02-05] MEDS: amLODIPine 5mg tablet PO SCH (09:41)
[2022-02-05 09:42] VITALS: BP_SYST 158
[2022-02-05] MEDS: metoprolol tartrate 12.5mg (1/2 tablet) PO SCH (09:42)
[2022-02-05] MEDS: neomy sulf/bacitrac zn/polymixin b oint 14.2 gm tube TP SCH (09:49)
[2022-02-05 09:55] LABS: BASOPHILS # (AUTO) 0.1 X10'3 (0-0.2); BASOPHILS % (AUTO) 1.2 % (0-1); EOSINOPHILS # (AUTO) 0.5 X10'3 (0-0.9); EOSINOPHILS % (AUTO) 6.6 % (0-6); HEMOGLOBIN 12.1 g/dl (14.0-17.9); LYMPHOCYTES # (AUTO) 0.9 X10'3 (1.1-4.8); LYMPHOCYTES % (AUTO) 11.9 % (21-51); MEAN CORPUSCULAR HEMOGLOBIN 28.8 PG (27.0-31.0); MEAN CORPUSCULAR HGB CONC 33.8 g/dL (33.0-36.5); MEAN CORPUSCULAR VOLUME 85.4 FL (78-98); MEAN PLATELET VOLUME 7.9 FL (7.4-10.4); MONOCYTES # (AUTO) 0.4 X10'3 (0-0.9); MONOCYTES % (AUTO) 5.6 % (2-12); NEUTROPHILS # (AUTO) 5.7 X10'3 (1.8-7.7); NEUTROPHILS % (AUTO) 74.7 % (42-75); PLATELET COUNT 288 X10'3 (140-440); RED BLOOD COUNT 4.22 X10'6 (4.70-6.10); RED CELL DISTRIBUTION WIDTH 15.3 % (11.5-14.5); WHITE BLOOD COUNT 7.7 X10'3 (4.5-11.0)
[2022-02-05] MEDS: insulin Lispro (HumaLOG) vial - multi-dose SQ SCH (10:03)
[2022-02-05 10:12] LABS: ALANINE AMINOTRANSFERASE 25 U/L (12-78); ALBUMIN 3.5 G/DL (3.4-5.0); ALBUMIN/GLOBULIN RATIO 0.8 (1.1-1.5); ALKALINE PHOSPHATASE 160 IU/L (46-116); ANION GAP 11 (8-16); ASPARTATE AMINO TRANSFERASE 23 U/L (10-37); BLOOD UREA NITROGEN 46 MG/DL (7-18); BUN/CREATININE RATIO 16.5 (5.4-32.0); CALCIUM 9.7 MG/DL (8.5-10.1); CHLORIDE 103 MMOL/L (99-107); CREATININE 2.79 MG/DL (0.60-1.10); GLUCOSE 155 MG/DL (70-104); POTASSIUM 4.1 MMOL/L (3.5-5.1); SODIUM 140 MMOL/L (135-145); TOTAL CARBON DIOXIDE 26.5 MMOL/L (24-32); TOTAL PROTEIN 7.9 G/DL (6.4-8.2); eGFR 22 ML/MIN
[2022-02-05] MEDS ORDERED: ATOR40TA PO (11:27)
[2022-02-05] MEDS ORDERED: TICA90TA PO (11:27)
[2022-02-05] MEDS ORDERED: ASPI81TA53 PO (11:27)
[2022-02-05] MEDS ORDERED: PHO667C PO (11:27)
[2022-02-05] MEDS ORDERED: AMIO200T67 PO (11:27)
--- NOTE | 2022-02-05 19:13 | NUR ---
Patient was discharged at 1500 with instructions and verbalizing understanding of instructions, in wheelchair accompanied by nursing staff and family. Education has been provided and all questions have been answered. Education about diabetes has been provided. All lines and tubes including PIV with cannula intact and tele monitor have been removed. Patient will make his own follow up appointment with the night shift manager. Patient is stable and appropriate for discharge.
--- NOTE | 2022-02-06 09:31 | NUR ---
Case Management DC follow up: Telephoned Patient, left VM with name, telephone number, and reason for call.Telephoned Patient's son and left VM with name, telephone number, and reason for call.
--- NOTE | 2022-02-06 15:08 | NUR ---
Case Management DC follow up:Attempted again to reach Patient via telephone; however, this time the telephone just rang.Telephoned Patient's son, and spoke to him regarding my attempts in contacting his Father .Patient's son verbalized his Dad has been in and out of the house today with his nephews.
== END 2022-02-05 15:19 | disposition home or self-care (01) | DRG 222 ==
LOC: ER 11:52 → ICU 2S 15:53 → UNDOADMIN 15:53 → ICU 2S 16:10 → PCU 3S 01-19 19:35
PROVIDERS: ADMIT Internal Medicine Critical Care Medicine; ATTEND Family Medicine
PROC: 5A1945Z Respiratory Ventilation, 24-96 Consecutive Hours (ICD-10-PCS; principal; 2022-01-13)
PROC: 0BH17EZ Insertion of Endotracheal Airway into Trachea, Via Natural or Artificial Opening (ICD-10-PCS; 2022-01-13)
PROC: 5A12012 Performance of Cardiac Output, Single, Manual (ICD-10-PCS; 2022-01-13)
PROC: 02HV33Z Insertion of Infusion Device into Superior Vena Cava, Percutaneous Approach (ICD-10-PCS; 2022-01-13)
PROC: 0JH608Z Insertion of Defibrillator Generator into Chest Subcutaneous Tissue and Fascia, Open Approach (ICD-10-PCS; 2022-01-21)
PROC: 0JH63FZ Insertion of Subcutaneous Defibrillator Lead into Chest Subcutaneous Tissue and Fascia, Percutaneous Approach (ICD-10-PCS; 2022-01-21)
PROC: 4A023N7 Measurement of Cardiac Sampling and Pressure, Left Heart, Percutaneous Approach (ICD-10-PCS; 2022-01-21)
PROC: B2111ZZ Fluoroscopy of Multiple Coronary Arteries using Low Osmolar Contrast (ICD-10-PCS; 2022-01-21)
PROC: 027036Z Dilation of Coronary Artery, One Artery with Three Drug-eluting Intraluminal Devices, Percutaneous Approach (ICD-10-PCS; 2022-02-03)
PROC: 4A023N7 Measurement of Cardiac Sampling and Pressure, Left Heart, Percutaneous Approach (ICD-10-PCS; 2022-02-03)
PROC: B2111ZZ Fluoroscopy of Multiple Coronary Arteries using Low Osmolar Contrast (ICD-10-PCS; 2022-02-03)
DX: I21.4 Non-ST elevation (NSTEMI) myocardial infarction (principal); I49.01 Ventricular fibrillation; R57.0 Cardiogenic shock; K72.00 Acute and subacute hepatic failure without coma; J96.01 Acute respiratory failure with hypoxia; I50.23 Acute on chronic systolic (congestive) heart failure; N17.0 Acute kidney failure with tubular necrosis; N18.4 Chronic kidney disease, stage 4 (severe); I42.9 Cardiomyopathy, unspecified; I13.0 Hypertensive heart and chronic kidney disease with heart failure and stage 1 through stage 4 chronic kidney disease, or unspecified chronic kidney disease; D68.9 Coagulation defect, unspecified; E87.20 Acidosis, unspecified; R65.10 Systemic inflammatory response syndrome (SIRS) of non-infectious origin without acute organ dysfunction; Z66 Do not resuscitate; E11.22 Type 2 diabetes mellitus with diabetic chronic kidney disease; E66.9 Obesity, unspecified; Z96.653 Presence of artificial knee joint, bilateral; M54.50 Low back pain, unspecified; E78.5 Hyperlipidemia, unspecified; R23.0 Cyanosis; E11.65 Type 2 diabetes mellitus with hyperglycemia; E11.649 Type 2 diabetes mellitus with hypoglycemia without coma; E87.6 Hypokalemia; D64.9 Anemia, unspecified; R34 Anuria and oliguria; R79.89 Other specified abnormal findings of blood chemistry; I48.91 Unspecified atrial fibrillation; R41.3 Other amnesia; R80.9 Proteinuria, unspecified; R91.8 Other nonspecific abnormal finding of lung field; D72.829 Elevated white blood cell count, unspecified; E88.09 Other disorders of plasma-protein metabolism, not elsewhere classified; I25.10 Atherosclerotic heart disease of native coronary artery without angina pectoris; Z20.822 Contact with and (suspected) exposure to COVID-19; Z79.82 Long term (current) use of aspirin; Z79.899 Other long term (current) drug therapy; Z68.36 Body mass index [BMI] 36.0-36.9, adult
CPT/HCPCS: 33249; 92950; 93306; 93308; 93458; 96365; 99291; 99292; C9600; 36415; 36600; 71045; 76770; 80048; 80053; 80061; 80069; 80202; 80305; 80320; 81001; 82570; 82803; 82810; 82948; 83036; 83605; 83735; 83880; 83935; 84100; 84132; 84133; 84134; 84145; 84156; 84300; 84439; 84443; 84478; 84484; 84540; 85007; 85018; 85025; 85379; 85384; 85610; 85730; 86870; 86885; 86900; 86901; 87040; 87077; 87081; 87088; 87186; 87635; 92507; 92508; 92616; 93005; 94002; 94003; 94760; 94799; 97110; 97116; 97162; 97530; 99152; 99153; A4333; A4565; A4615; A4620; A4663; A5120; A6213; A6253; A6258; A6449; A7526; A9900; C1725; C1751; C1769; C1777; C1874; C1894; C9113; C9803; G0378; J0171; J0282; J0690; J1250; J1644; J1815; J1940; J2250; J2543; J2704; J3010; J3370; J3430; J3475; J3480; J3490; J7030; J7040; J7050; J7070; Q9967

== ENCOUNTER 2022-03-30 09:19 | Emergency (ER) | payer MEDICARE ==
[~2022-03-30] VITALS: Ht 177.8 cm; Wt 122.0 kg
[~2022-03-30 09:19] MED LIST: AMIO200T67 PO; AMLO10TA13 PO; ASPI81TA53 PO; ATOR40TA PO; LEVO200T8 PO; PHO667C PO; TICA90TA PO
[2022-03-30 09:24] VITALS: BP 135/84
[2022-03-30] MEDS ORDERED: CEPH250T PO (09:41)
== END 2022-03-30 09:49 | disposition home or self-care (01) ==
LOC: ER 09:19
DX: T81.9XXA Unspecified complication of procedure, initial encounter (principal); Z79.899 Other long term (current) drug therapy
CPT/HCPCS: 99283